=== PATIENT | male | born 1945 | race Caucasian/White ===

== ENCOUNTER → 2016-11-03 | Outpatient (CLI) | payer BC ==
[~2016-11-03] MED LIST: ASPCH81X PO; ATOR-24 PO; FLUO20CA34 PO; LEVO75TA5 PO; LPR50 PO; LSN25 PO; PLV75 PO
[2016-11-03 14:01] LABS: BASO % 0.4 %; BASO ABS # 0.02 K/uL (0-0.2); COMPLETE YES; EOS % 1.5 %; HEMATOCRIT 43.8 % (42-52); IG% 0.2 %; LYMPH % 26.8 %; LYMPH ABS # 1.43 K/uL (1.2-3.4); MEAN CELL VOLUME 92.6 fL (80-100); MEAN CORPUSCULAR HEMOGLOBIN 31.5 pg (25-34); MEAN PLATELET VOLUME 10.9 fL (7.4-10.4); MONO % 10.5 %; NEUT % 60.6 %; PLATELET COUNT 188 K/uL (130-400); RED BLOOD COUNT 4.73 M/uL (4.7-6.1); WHITE BLOOD COUNT 5.33 K/uL (4.8-10.8)
[2016-11-03 14:09] LABS: ESTIMATED AVERAGE GLUCOSE 126 mg/dl; HA1C FLAG Normal (Normal)
[2016-11-03 14:20] LABS: CALCIUM 8.6 mg/dl (8.5-10.1)
[2016-11-03 14:21] LABS: ALKALINE PHOSPHATASE 83 U/L (45-117); ALT/SGPT 42 U/L (12-78); AST/SGOT 29 U/L (15-37); BLOOD UREA NITROGEN 14 mg/dl (7-18); BUN/CREATININE RATIO 11.8 (10-20); CARBON DIOXIDE 27 mmol/L (21-32); CHLORIDE 108 mmol/L (98-107); CHOLESTEROL 141 mg/dl (0-200); CHOLESTEROL/HDL RATIO 4.4; GLUCOSE 90 mg/dl (70-99); HDL CHOLESTEROL 32 mg/dl; POTASSIUM 4.5 mmol/L (3.5-5.1); SODIUM 141 mmol/L (136-145); TRIGLYCERIDES 101 mg/dl (0-150); VERY LOW DENSITY LIPOPROT CALC 20 mg/dl
[2016-11-03 14:25] LABS: ALB/GLOB RATIO 0.9 (0.9-2)
== END | disposition home or self-care (01) ==
LOC: C.LABSPEC 12:30
PROVIDERS: ATTEND Internal Medicine
DX: R73.9 Hyperglycemia, unspecified (principal); I10 Essential (primary) hypertension; I25.10 Atherosclerotic heart disease of native coronary artery without angina pectoris; E78.5 Hyperlipidemia, unspecified; E03.9 Hypothyroidism, unspecified

== ENCOUNTER → 2016-11-05 | Outpatient (CLI) | payer BC | END | disposition home or self-care (01) | LOC: C.LABSPEC 09:56 | PROVIDERS: ATTEND Internal Medicine | DX: Z12.11 Encounter for screening for malignant neoplasm of colon (principal) ==

== ENCOUNTER → 2017-05-11 | Outpatient (CLI) | payer BC ==
[2017-05-11 15:22] LABS: ALT/SGPT 47 U/L (12-78); AST/SGOT 30 U/L (15-37); BLOOD UREA NITROGEN 13 mg/dl (7-18); BUN/CREATININE RATIO 11.4 (10-20); CALCIUM 8.9 mg/dl (8.5-10.1); CARBON DIOXIDE 28 mmol/L (21-32); CHLORIDE 106 mmol/L (98-107); CHOLESTEROL 152 mg/dl (0-200); CREATININE 1.11 mg/dl (0.60-1.40); GLUCOSE 89 mg/dl (70-99); POTASSIUM 4.2 mmol/L (3.5-5.1); SODIUM 140 mmol/L (136-145)
[2017-05-11 15:25] LABS: ALB/GLOB RATIO 0.8 (0.9-2); ALKALINE PHOSPHATASE 101 U/L (45-117); HDL CHOLESTEROL 38 mg/dl; TRIGLYCERIDES 100 mg/dl (0-150); VERY LOW DENSITY LIPOPROT CALC 20 mg/dl
[2017-05-12 07:43] LABS: ESTIMATED AVERAGE GLUCOSE 126 mg/dl; HA1C FLAG Normal (Normal)
== END | disposition home or self-care (01) ==
LOC: C.LABSPEC 14:49
PROVIDERS: ATTEND Internal Medicine
DX: I25.10 Atherosclerotic heart disease of native coronary artery without angina pectoris (principal); E78.5 Hyperlipidemia, unspecified; I10 Essential (primary) hypertension; E03.9 Hypothyroidism, unspecified; R73.9 Hyperglycemia, unspecified

== ENCOUNTER → 2017-05-29 | Outpatient (CLI) | payer BC ==
--- NOTE | 2017-05-29 10:51 | DIAGNOSTIC IMAGING REPORT ---
L-SPINE MIN 4 VIEWS ROUTINE HISTORY: 72 years-old Male LBP acute low back pain without reported trauma COMPARISON: None available TECHNIQUE: 5 views of the lumbar spine FINDINGS: No acute fracture or subluxation identified. Severe intervertebral disc space narrowing at L5-S1 with moderate multilevel disc space narrowing and endplate spurring. Severe multilevel facet arthrosis. No spondylolysis or spondylolisthesis identified. A 9 x 6 mm calcification projects of the left kidney suggesting renal calculus. The remaining soft tissues are unremarkable. IMPRESSION: 1. No acute fracture or subluxation. 2. Multilevel endplate spurring, intervertebral disc space narrowing and facet arthropathy as above. 3. 9 x 6 mm calcification of the left abdomen suggest nephrolithiasis. The above report was generated using voice recognition software. It may contain grammatical, syntax or spelling errors. Electronically signed by: Bora Stone M.D. 05/29/2017 10:50 AM Dictated Date/Time: 05/29/2017 10:49 AM
== END | disposition home or self-care (01) ==
LOC: C.RAD 10:21
PROVIDERS: ATTEND Internal Medicine
DX: M54.5 Low back pain (principal); M25.70 Osteophyte, unspecified joint; M51.36 Other intervertebral disc degeneration, lumbar region; R93.5 Abnormal findings on diagnostic imaging of other abdominal regions, including retroperitoneum

== ENCOUNTER → 2017-07-29 | Outpatient (CLI) | payer BC ==
[2017-07-29 15:37] LABS: BASO % 0.1 %; BASO ABS # 0.01 K/uL (0-0.2); EOS % 0.3 %; EOS ABS # 0.03 K/uL (0-0.5); HEMATOCRIT 39.3 % (42-52); HEMOGLOBIN 13.3 g/dL (14.0-18.0); IG# 0.03 K/uL (0.00-0.02); LYMPH % 15.1 %; LYMPH ABS # 1.49 K/uL (1.2-3.4); MEAN CELL VOLUME 91.2 fL (80-100); MEAN CORPUSCULAR HEMOGLOBIN 30.9 pg (25-34); MEAN CORPUSCULAR HGB CONC 33.8 g/dl (32-36); MEAN PLATELET VOLUME 10.5 fL (7.4-10.4); MONO % 8.2 %; MONO ABS # 0.81 K/uL (0.11-0.59); PLATELET COUNT 229 K/uL (130-400); RED CELL DISTRIBUTION WIDTH CV 13.3 % (11.5-14.5); RED CELL DISTRIBUTION WIDTH SD 44.4 fL (36.4-46.3); WHITE BLOOD COUNT 9.87 K/uL (4.8-10.8)
[2017-07-29 15:46] LABS: ALBUMIN 2.8 gm/dl (3.4-5.0); ALT/SGPT 39 U/L (12-78); AST/SGOT 32 U/L (15-37); BLOOD UREA NITROGEN 18 mg/dl (7-18); CALCIUM 8.7 mg/dl (8.5-10.1); CARBON DIOXIDE 27 mmol/L (21-32); CREATININE 1.19 mg/dl (0.60-1.40); GLUCOSE 136 mg/dl (70-99); SODIUM 139 mmol/L (136-145)
[2017-07-29 16:00] LABS: ALKALINE PHOSPHATASE 98 U/L (45-117); TOTAL PROTEIN 7.8 gm/dl (6.4-8.2)
== END ==
LOC: C.LABSPEC 14:54
PROVIDERS: ATTEND Internal Medicine
DX: R51 Headache (principal); I25.10 Atherosclerotic heart disease of native coronary artery without angina pectoris; I10 Essential (primary) hypertension; R53.83 Other fatigue; E03.9 Hypothyroidism, unspecified

== ENCOUNTER → 2017-07-31 | Outpatient (CLI) | payer BC | END | disposition home or self-care (01) | LOC: C.LABSPEC 12:57 | PROVIDERS: ATTEND Internal Medicine | DX: R77.1 Abnormality of globulin (principal) ==

== ENCOUNTER → 2017-08-06 | Outpatient (CLI) | payer BC | END | disposition home or self-care (01) | LOC: C.LABSPEC 12:34 | PROVIDERS: ATTEND Internal Medicine | DX: R77.1 Abnormality of globulin (principal) ==

== ENCOUNTER 2018-02-04 05:33 | Inpatient (IN) | payer BC, OTHER ==
[~2018-02-04] VITALS: Ht 170.2 cm; Wt 95.1 kg
[2018-02-04] MEDS ORDERED: MoRPHine SULFATE 10 MG/ML CARP/VIAL IV STA (05:49)
[2018-02-04] MEDS ORDERED: ONDANSETRON INJ 2 MG/ML 2 ML VIAL IV STA (05:49)
[2018-02-04] MEDS ORDERED: KETOROLAC TROMETHAMINE 15 MG/ML VIAL IV ONE (06:00)
[2018-02-04] MEDS ORDERED: SODIUM CHLORIDE 0.9% 1000ML 1,000 ML IV ONE (06:00)
[2018-02-04 06:02] LABS: BASO % 0.3 %; BASO ABS # 0.02 K/uL (0-0.2); EOS % 1.2 %; EOS ABS # 0.09 K/uL (0-0.5); HEMATOCRIT 44.2 % (42-52); HEMOGLOBIN 14.9 g/dL (14.0-18.0); IG# 0.02 K/uL (0.00-0.02); LYMPH % 20.8 %; LYMPH ABS # 1.59 K/uL (1.2-3.4); MEAN CELL VOLUME 92.5 fL (80-100); MEAN CORPUSCULAR HEMOGLOBIN 31.2 pg (25-34); MEAN CORPUSCULAR HGB CONC 33.7 g/dl (32-36); MEAN PLATELET VOLUME 10.3 fL (7.4-10.4); MONO % 6.4 %; MONO ABS # 0.49 K/uL (0.11-0.59); NEUT ABS # 5.43 K/uL (1.4-6.5); PLATELET COUNT 170 K/uL (130-400); RED CELL DISTRIBUTION WIDTH CV 13.8 % (11.5-14.5); RED CELL DISTRIBUTION WIDTH SD 46.4 fL (36.4-46.3); WHITE BLOOD COUNT 7.64 K/uL (4.8-10.8)
[2018-02-04 06:39] LABS: ALBUMIN 3.6 gm/dl (3.4-5.0); CALCIUM 8.6 mg/dl (8.5-10.1); CREATININE 1.41 mg/dl (0.60-1.40); POTASSIUM 3.6 mmol/L (3.5-5.1); TOTAL PROTEIN 7.9 gm/dl (6.4-8.2)
--- NOTE | 2018-02-04 06:49 | DIAGNOSTIC IMAGING REPORT ---
CT OF THE ABDOMEN AND PELVIS WITHOUT CONTRAST CLINICAL HISTORY: Left flank pain. History of stones. COMPARISON STUDY: No previous studies for comparison. TECHNIQUE: Axial images of the abdomen and pelvis were obtained without IV contrast. Images were reviewed in the axial, sagittal, and coronal planes. A dose lowering technique was utilized adhering to the principles of ALARA. FINDINGS: 1.2 x 0.5 cm left ureteropelvic junction calculus results in moderate left hydronephrosis. A few left renal calculi measure up to 4 mm. There are no right ureteral calculi. Evaluation of the remainder of the abdomen and pelvis is suboptimal on this unenhanced examination. A few water attenuation hepatic lesions measure up to 1 cm. These favor cysts. The spleen, adrenal glands and pancreas are unremarkable. There is no evidence for a bowel obstruction. Bladder is mildly distended. Prostate is moderately enlarged. There is no lymphadenopathy or ascites. There are no suspicious osseous lesions. No biliary or pancreatic ductal dilatation is present. IMPRESSION: 1. 1.2 x 0.5 cm left ureteropelvic junction calculus which results in moderate left hydronephrosis. 2. Several small left renal calculi. Electronically signed by: Phoenix Rose M.D. 02/04/2018 6:48 AM Dictated Date/Time: 02/04/2018 6:43 AM
[2018-02-04] MEDS ORDERED: ACETAMINOPHEN IV 650 MG in EMPTY BAG 0 ML IV PRN (07:15)
[2018-02-04] MEDS ORDERED: LORAZEPAM 2 MG/ML 1 ML VIAL IV PRN ×2 (07:15)
[2018-02-04] MEDS ORDERED: KETOROLAC TROMETHAMINE 15 MG/ML VIAL IV PRN (07:15)
[2018-02-04] MEDS ORDERED: ACETAMINOPHEN 325 MG TAB PO PRN (07:15)
[2018-02-04] MEDS ORDERED: POLYETHYLENE (MIRALAX) 17 GM PACK PO PRN (07:15)
[2018-02-04] MEDS ORDERED: MoRPHine SULFATE 4 MG/ML 1 ML CARP\\VIAL IV PRN (07:15)
[2018-02-04] MEDS ORDERED: ONDANSETRON INJ 2 MG/ML 2 ML VIAL IV PRN (07:15)
[2018-02-04] MEDS ORDERED: CLONIDINE HCL 0.1 MG TAB PO PRN (07:15)
[2018-02-04] MEDS ORDERED: MAGNESIUM HYDROXIDE SUSP 30 ML UDC PO PRN (07:15)
[2018-02-04] MEDS ORDERED: ATOR-26 PO (07:19)
[2018-02-04] MEDS ORDERED: LISI-1116 PO (07:22)
[2018-02-04] MEDS ORDERED: LISI5TAB PO (07:22)
[2018-02-04] MEDS ORDERED: TPRSR/50 PO (07:24)
[2018-02-04 07:32] VITALS: O2SAT 97; Ht 170.2 cm; Wt 95.1 kg
--- NOTE | 2018-02-04 08:01 | History and Physical ---
History & Physical Date & Time of Service: Feb 04, 2018 at 07:56 Chief Complaint: left flank pain,KIDNEY STONE Primary Care Physician: Humphrey Khanna M.D. History of Present Illness 73-year-old male presents with acute sided left-sided flank pain and nausea. The patient is relatively healthy in general he does a cardiac history of those had no recent angina orthopnea or concerns for recurrence of his cardiac disease. He does have some mild dyspnea on exertion has been worked up by Dr. Eubanks pulmonary function tests. In the emergency room a CT scan revealed a 1.2 x 0.5 cm left UPJ stone with mild hydronephrosis patient also has mild acute kidney injury with elevation of his creatinine over his baseline. Patient will be admitted for urology consultation and possible cystoscopic manipulation of the stone plus parenteral pain medications and hydration Past Medical/Surgical History Medical Problems: (1) Acute inferior myocardial infarction (2) Hyperlipidemia (3) Nephrolithiasis (4) STEMI (ST elevation myocardial infarction) (5) Thyroid disorder Family History FH: heart disease Social History Smoking Status: Never Smoker Alcohol Use: none Marital Status: Occupational Status: employed Immunizations History of Influenza Vaccine: No History of Tetanus Vaccine?: Unknown History of Pneumococcal: No History of Hepatitis B Vaccine: No Allergies Coded Allergies: No Known Allergies (Unverified , 08/14/13) Home Medications Scheduled Aspirin (Aspirin Chewable), 81 MG PO DAILY Atorvastatin (Lipitor), 80 MG PO DAILY Fluoxetine Hcl (Prozac), 20 MG PO DAILY Levothyroxine Sodium (Levothyroxine Sodium), 75 MCG PO DAILY Lisinopril (Lisinopril), 2.5 MG PO DAILY Metoprolol Succinate (Metoprolol Succinate ER), 50 MG PO DAILY Metoprolol Tartrate (Metoprolol Tartrate), 50 MG PO BID Review of Systems ROS: well nourished well developed. No double vision blurry vision No problems with speech or swallowing No palpitations, chest pain or pressure No Wheezing or breathing issues, as per HPI mild dyspnea on exertion Left-sided crampy abdominal pain plus mild nausea, no diarrhea or changes in appetite or weight No burning urine urine frequency or changes in color No focal joint pain or muscle pain No skin rashes or oral lesions No unusual bruising or bleeding Left cva back pain or numbness or loss of strength No changes in memory or confusion Physical Exam Vital Signs Date Time Temp Pulse Resp B/P (MAP) Pulse Ox O2 Delivery O2 Flow Rate FiO2 02/04/18 07:32 97 Nasal Cannula 2.0 02/04/18 06:39 72 16 141/80 97 Nasal Cannula 2.0 02/04/18 06:24 92 Nasal Cannula 2.0 02/04/18 06:24 93 Nasal Cannula 2.0 02/04/18 06:22 69 20 136/83 88 Room Air 02/04/18 05:37 50 18 182/96 97 Room Air General Appearance: WD/WN, + mild distress Head: normocephalic, atraumatic Eyes: normal inspection, sclerae normal Neck: supple, no JVD Respiratory/Chest: chest non-tender, lungs clear, normal breath sounds Cardiovascular: regular rate, rhythm, normal peripheral pulses Abdomen/GI: normal bowel sounds, soft, + tenderness Back: no muscle spasm, + left CVA tenderness Extremities/Musculoskelatal: no pedal edema, normal range of motion Neurologic/Psych: alert, oriented x 3 Skin: normal color, warm/dry, no rash Diagnostics Laboratory Results Results Past 24 Hours Test 02/04/18 05:45 02/04/18 05:56 Range/Units White Blood Count 7.64 4.8-10.8 K/uL Red Blood Count 4.78 4.7-6.1 M/uL Hemoglobin 14.9 14.0-18.0 g/dL Hematocrit 44.2 42-52 % Mean Corpuscular Volume 92.5 80-100 fL Mean Corpuscular Hemoglobin 31.2 25-34 pg Mean Corpuscular Hemoglobin Concent 33.7 32-36 g/dl Platelet Count 170 130-400 K/uL Mean Platelet Volume 10.3 7.4-10.4 fL Neutrophils (%) (Auto) 71.0 % Lymphocytes (%) (Auto) 20.8 % Monocytes (%) (Auto) 6.4 % Eosinophils (%) (Auto) 1.2 % Basophils (%) (Auto) 0.3 % Neutrophils # (Auto) 5.43 1.4-6.5 K/uL Lymphocytes # (Auto) 1.59 1.2-3.4 K/uL Monocytes # (Auto) 0.49 0.11-0.59 K/uL Eosinophils # (Auto) 0.09 0-0.5 K/uL Basophils # (Auto) 0.02 0-0.2 K/uL RDW Standard Deviation 46.4 36.4-46.3 fL RDW Coefficient of Variation 13.8 11.5-14.5 % Immature Granulocyte % (Auto) 0.3 % Immature Granulocyte # (Auto) 0.02 0.00-0.02 K/uL Sodium Level 141 136-145 mmol/L Potassium Level 3.6 3.5-5.1 mmol/L Chloride Level 106 98-107 mmol/L Carbon Dioxide Level 26 21-32 mmol/L Anion Gap 9.0 3-11 mmol/L Blood Urea Nitrogen 25 7-18 mg/dl Creatinine 1.41 0.60-1.40 mg/dl Est Creatinine Clear Calc Drug Dose 52.8 ml/min Estimated GFR () 57.7 Estimated GFR (Non- 49.8 BUN/Creatinine Ratio 17.4 10-20 Random Glucose 197 70-99 mg/dl Calcium Level 8.6 8.5-10.1 mg/dl Total Bilirubin 0.5 0.2-1 mg/dl Aspartate Amino Transf (AST/SGOT) 29 15-37 U/L Alanine Aminotransferase (ALT/SGPT) 38 12-78 U/L Alkaline Phosphatase 111 45-117 U/L Total Protein 7.9 6.4-8.2 gm/dl Albumin 3.6 3.4-5.0 gm/dl Globulin 4.3 2.5-4.0 gm/dl Albumin/Globulin Ratio 0.8 0.9-2 Lipase 495 73-393 U/L Bedside Troponin I < 0.030 0-0.045 ng/ml Diagnostic Radiology Ct Abdomen/Pelvis non contrast 1. 1.2 x 0.5 cm left ureteropelvic junction calculus which results in moderate left hydronephrosis. 2. Several small left renal calculi. Impression Assessment and Plan 73-year-old male here with left renal colic hydronephrosis and acute kidney injury Patient will be admitted to our facility urology consultation intravenous fluids parenteral opiates and nonsteroidals Flomax will be started For his history of coronary disease his aspirin will be held will maintain his metoprolol 50 twice daily holding lisinopril 2.5 maintaining atorvastatin For his depression Prozac will be maintained at 20 Hypothyroidism is treated clinically stable Synthroid 75 mcg a day DVT prevention is SCDs at this time given the possibility of a procedure Advanced Directives Existing Living Will: Yes Existing Power of Grooving Lathe Tender: Yes Resuscitation Status VTE Prophylaxis Will order VTE Prophylaxis: Yes
[2018-02-04 08:04] VITALS: BP 135/75; PULSE 57; TEMP 36.5; O2SAT 93
[2018-02-04] MEDS ORDERED: LORAZEPAM INJ 1 MG in SYRINGE 0.5 ML IV PRN (08:45)
[2018-02-04] MEDS ORDERED: LORAZEPAM INJ 0.5 MG in SYRINGE 0.75 ML IV PRN (08:45)
[2018-02-04] MEDS: SODIUM CHLORIDE 0.9% 1000ML 1,000 ML IV SCH ×3 (08:54→22:29)
[2018-02-04] MEDS: METOPROLOL TARTRATE 50 MG TAB PO SCH ×2 (09:00→21:03)
[2018-02-04] MEDS: TAMSULOSIN HCL 0.4 MG CAP PO SCH (09:18)
[2018-02-04] MEDS: FLUOXETINE HCL 20 MG CAP PO SCH (09:21)
--- NOTE | 2018-02-04 10:46 | Urology Consultation ---
History General Date of Service: Feb 04, 2018. Chief Complaint: Left ureteral stone Primary Care Physician: Humphrey Khanna M.D. Pt seen a urologist before?: No History of Present Illness 73 YO male, left ureteral stone, mild hydronephrosis, mild ERMIAS. Patient has never seen a urologist before, and he believes this is his first kidney stone. CT images reviewed: 12mm stone at left UPJ, mild hydronephrosis. Mild ERMIAS with Cr 1.41. Patient reports episode of sharp flank pain overnight with accompanying nausea, bringing him to the ER. He denies difficulty or pain with urination, denies hematuria. Denies fever/chills. Denies pain at this time. Imaging Imaging: CT Images were done at: [facility] Laboratory Labs were reviewed and are within normal limits unless listed below. Labs are available in the chart and at [facility] Past History other (cardiac stent) Pt had a problem w anesthesia?: No Past Surgical History: appendectomy, other (cardiac stent) Family History FH: heart disease Social History Hx Tobacco Use In Past Year?: No Alcohol: socially, occasional Drug use: none Marital status: Housing status: lives with family Occupation status: employed Immunizations History of Influenza Vaccine: No History of Tetanus Vaccine?: Unknown History of Pneumococcal: No History of Hepatitis B Vaccine: No History of MDRO No Allergies Coded Allergies: No Known Allergies (Unverified , 08/14/13) Medications Home Medications: Home Meds and Scripts Medications Dose Route/Sig Max Daily Dose Days Date Category Metoprolol Succinate ER (Metoprolol Succinate) 50 Mg Tabcr 50 Mg PO DAILY 02/04/18 Reported Lisinopril 2.5 Mg Tab 2.5 Mg PO DAILY 02/04/18 Reported Lipitor (Atorvastatin Calcium) 80 Mg Tab 80 Mg PO DAILY 02/04/18 Reported Aspirin Chewable (Aspirin) 81 Mg Chew 81 Mg PO DAILY 09/12/13 Reported Metoprolol Tartrate 50 Mg Tab 50 Mg PO BID 08/17/13 Rx Prozac (Fluoxetine Hcl) 20 Mg Cap 20 Mg PO DAILY 08/14/13 Reported Levothyroxine Sodium 75 Mcg Tab 75 Mcg PO DAILY 08/14/13 Reported Inpatient Medications: Current Inpatient Medications Medications (Trade) Dose Ordered Sig/Jorge Route Start Time Stop Time Status Last Admin Dose Admin Fluoxetine HCl (Prozac Cap) 20 mg DAILY PO 02/04/18 09:00 03/06/18 08:59 02/04/18 09:21 20 MG Levothyroxine Sodium (Synthroid Tab) 75 mcg DAILYBB PO 02/04/18 11:00 03/06/18 10:59 Metoprolol Tartrate (Lopressor Tab) 50 mg BID PO 02/04/18 09:00 03/06/18 08:59 Acetaminophen (Tylenol Tab) 650 mg Q4H PRN PO 02/04/18 07:15 03/06/18 07:14 Magnesium Hydroxide (Milk Of Magnesia Susp) 30 ml Q6H PRN PO 02/04/18 07:15 03/06/18 07:14 Polyethylene (Miralax Powder Packet) 17 gm DAILY PRN PO 02/04/18 07:15 03/06/18 07:14 Ondansetron HCl (Zofran Inj) 4 mg Q6H PRN IV 02/04/18 07:15 03/06/18 07:14 Sodium Chloride 1,000 ml @ 150 mls/hr Q6H40M IV 02/04/18 08:30 03/06/18 08:29 02/04/18 08:54 150 MLS/HR Morphine Sulfate (MoRPHine SULFATE INJ) 2 mg Q4H PRN IV 02/04/18 07:15 02/18/18 07:14 Morphine Sulfate (MoRPHine SULFATE INJ) 4 mg Q4H PRN IV 02/04/18 07:15 02/18/18 07:14 Ketorolac Tromethamine (Toradol Inj) 15 mg Q6H PRN IV 02/04/18 07:15 02/09/18 07:14 Acetaminophen 650 mg/Empty Bag 65 ml @ 260 mls/hr Q6H PRN IV 02/04/18 07:15 03/06/18 07:14 Clonidine HCl (Catapres Tab) 0.1 mg Q12H PRN PO 02/04/18 07:15 03/06/18 07:14 Tamsulosin HCl (Flomax Cap) 0.4 mg QAM PO 02/04/18 09:00 03/06/18 08:59 02/04/18 09:18 0.4 MG Lorazepam 0.5 mg/ Syringe 1 ml @ 1 mls/min Q4H PRN IV 02/04/18 08:45 9/22/18 08:44 Lorazepam 1 mg/ Syringe 1 ml @ 1 mls/min Q4H PRN IV 02/04/18 08:45 03/06/18 08:44 Review of Systems Review of Systems Constitutional: No fever, No chills Eyes: No blurred vision Neurological: No numbness/tingling Gastrointestinal: + nausea, No abdominal pain, No vomiting Cardiovascular: No chest pain Respiratory: No shortness of breath Skin: No problem reported Musculoskeletal: + back pain (mild, left flank) Ears / Nose / Throat: No problem reported Psychologic / Mental: No problem reported Male : + see HPI Physical Exam Vital Signs: Vital Signs Past 12 Hours Date Time Temp Pulse Resp B/P (MAP) Pulse Ox O2 Delivery O2 Flow Rate FiO2 02/04/18 08:10 Nasal Cannula 2.0 02/04/18 08:04 36.5 57 18 135/75 (95) 93 2.0 02/04/18 07:32 97 Nasal Cannula 2.0 02/04/18 06:39 72 16 141/80 97 Nasal Cannula 2.0 02/04/18 06:24 92 Nasal Cannula 2.0 02/04/18 06:24 93 Nasal Cannula 2.0 02/04/18 06:22 69 20 136/83 88 Room Air 02/04/18 05:37 50 18 182/96 97 Room Air Physical Exam: General Appearance: no apparent distress Eyes: bilateral eyes normal inspection ENT: hearing grossly normal Neck: supple, no JVD Respiratory/Chest: no respiratory distress, no accessory muscle use Cardiovascular: no JVD Gastrointestinal: Abdomen: normal abdomen Bladder: normal bladder Renal: normal renal, cva tenderness (mild left) Extremities: normal inspection Neurologic/Psychiatric: alert, normal mood/affect, oriented x 3 Skin: normal color Assessment & Plan Assessment & Plan Imaging: KUB 73 YO male, left ureteral stone, mild hydronephrosis, mild ERMIAS. Patient's pain is under control, he remains afebrile. Denies nausea, no difficulties voiding. Cr slightly elevated, will continue to monitor. Recommend supportive therapy: continued pain control, Zofran PRN nausea, Flomax , IVF. Push PO intake, strain all urine. Will check KUB today for visualization, likely candidate for ESWL/outpatient stone management. Will provide diet today, will make NPO at midnight in the event that acute surgical intervention is required tomorrow. Thanks for the consult, will continue to follow along with primary service.
[2018-02-04] MEDS: LEVOTHYROXINE 75 MCG TAB PO SCH (10:49)
--- NOTE | 2018-02-04 11:28 | DIAGNOSTIC IMAGING REPORT ---
KUB CLINICAL HISTORY: Nephrolithiasis. COMPARISON STUDY: CT of the abdomen and pelvis February 04, 2018 at 6:16 AM. FINDINGS: A 1.1 x 0.5 cm left ureteropelvic junction calculus is unchanged in position since CT performed earlier today. A few small left renal calculi are noted. Pelvic calcifications reflect phleboliths. The bowel gas pattern is normal. IMPRESSION: 1. No change in position of a 1.1 x 0.5 cm left ureteropelvic junction calculus. 2. A few small left renal calculi. Electronically signed by: Phoenix Rose M.D. 02/04/2018 11:27 AM Dictated Date/Time: 02/04/2018 11:25 AM
[2018-02-04] MEDS: MoRPHine SULFATE 2 MG/ML CARP IV PRN (13:55)
[2018-02-04 15:10] VITALS: BP 139/68; PULSE 54; TEMP 36.3; O2SAT 93
[2018-02-04 21:01] VITALS: BP 122/74; PULSE 65
[2018-02-04 23:00] VITALS: BP 112/70; PULSE 55; TEMP 36.5; O2SAT 93
[2018-02-05] VITALS (9 sets, daily range): BP systolic 130–163; BP diastolic 76–90; PULSE 61–69; TEMP 36.6–37.1; O2SAT 93–96
[2018-02-05] MEDS: MoRPHine SULFATE 2 MG/ML CARP IV PRN (00:21)
[2018-02-05] MEDS: SODIUM CHLORIDE 0.9% 1000ML 1,000 ML IV SCH ×3 (04:53→21:09)
--- NOTE | 2018-02-05 05:29 | EMERGENCY ROOM VISIT NOTE ---
History First contact with patient: 05:42 Chief Complaint: KIDNEY STONE Stated Complaint: NEPHROLITHIASIS History of Present Illness The patient is a 73 year old male who presents to the Emergency Room with complaints of acute onset left flank pain that began about 2 hours ago. The patient states the pain radiates from his back down into his groin. The pain is intermittent in nature and at its worst is a 10/10. He is nauseated without vomiting. The patient does have a past history of cardiac disease, however this does not feel heart related. He has not taken anything [id number] for his pain. He is without fever or chills. No difficulty using the bathroom. His discomfort is currently rated a 5/10. He does not identify aggravating or alleviating factors. Review of Systems More than 10 systems were reviewed and otherwise negative with the exception of history of present illness. Past Medical/Surgical History Medical Problems: (1) Hyperlipidemia (2) Nephrolithiasis (3) Thyroid disorder Family History FH: heart disease Social History Smoking Status: Never Smoker Marital Status: Housing Status: lives with significant other Occupation Status: employed Current/Historical Medications Scheduled Aspirin (Aspirin Chewable), 81 MG PO DAILY Atorvastatin (Lipitor), 80 MG PO DAILY Fluoxetine Hcl (Prozac), 20 MG PO DAILY Levothyroxine Sodium (Levothyroxine Sodium), 75 MCG PO DAILY Lisinopril (Lisinopril), 2.5 MG PO DAILY Metoprolol Succinate (Metoprolol Succinate ER), 50 MG PO DAILY Metoprolol Tartrate (Metoprolol Tartrate), 50 MG PO BID Physical Exam Vital Signs Date Time Temp Pulse Resp B/P (MAP) Pulse Ox O2 Delivery O2 Flow Rate FiO2 02/04/18 08:04 36.5 57 18 135/75 (95) 93 2.0 02/04/18 07:32 97 Nasal Cannula 2.0 02/04/18 06:39 72 16 141/80 97 Nasal Cannula 2.0 02/04/18 06:24 92 Nasal Cannula 2.0 02/04/18 06:24 93 Nasal Cannula 2.0 02/04/18 06:22 69 20 136/83 88 Room Air 02/04/18 05:37 50 18 182/96 97 Room Air Physical Exam VITALS: Vitals are noted on the nurse's note and reviewed by myself. Vital signs stable. GENERAL: Well-developed, well-nourished, white male who appears in moderate to severe discomfort. He is cooperative with the examination. He is laying flat in his ER bed. HEART: Regular rate and rhythm LUNGS: Clear to auscultation bilaterally without wheezes, rales or rhonchi. No retractions or accessory muscle use. ABDOMEN: Positive normal bowel sounds x 4. Soft, nontender, without masses or organomegaly. No guarding or rebound tenderness. No CVA tenderness MUSCULOSKELETAL: No muscle atrophy, erythema, or edema noted. Full range of motion in all extremities. Medical Decision & Procedures ER Provider Diagnostic Interpretation: CT OF THE ABDOMEN AND PELVIS WITHOUT CONTRAST CLINICAL HISTORY: Left flank pain. History of stones. COMPARISON STUDY: No previous studies for comparison. TECHNIQUE: Axial images of the abdomen and pelvis were obtained without IV contrast. Images were reviewed in the axial, sagittal, and coronal planes. A dose lowering technique was utilized adhering to the principles of ALARA. FINDINGS: 1.2 x 0.5 cm left ureteropelvic junction calculus results in moderate left hydronephrosis. A few left renal calculi measure up to 4 mm. There are no right ureteral calculi. Evaluation of the remainder of the abdomen and pelvis is suboptimal on this unenhanced examination. A few water attenuation hepatic lesions measure up to 1 cm. These favor cysts. The spleen, adrenal glands and pancreas are unremarkable. There is no evidence for a bowel obstruction. Bladder is mildly distended. Prostate is moderately enlarged. There is no lymphadenopathy or ascites. There are no suspicious osseous lesions. No biliary or pancreatic ductal dilatation is present. IMPRESSION: 1. 1.2 x 0.5 cm left ureteropelvic junction calculus which results in moderate left hydronephrosis. 2. Several small left renal calculi. Laboratory Results Test 02/04/18 00:00 02/04/18 05:45 02/04/18 05:56 Urine Color YELLOW Urine Appearance CLOUDY (CLEAR) Urine pH 5.0 (4.5-7.5) Urine Specific [place] 1.024 (1.000-1.030) Urine Protein NEG (NEG) Urine Glucose (UA) NEG (NEG) Urine Ketones NEG (NEG) Urine Occult Blood 3+ (NEG) Urine Nitrite NEG (NEG) Urine Bilirubin NEG (NEG) Urine Urobilinogen NEG (NEG) Urine Leukocyte Esterase SMALL (NEG) Urine WBC (Auto) 5-10 /hpf (0-5) Urine RBC (Auto) >30 /hpf (0-4) Urine Hyaline Casts (Auto) 1-5 /lpf (0-5) Urine Epithelial Cells (Auto) >30 /lpf (0-5) Urine Bacteria (Auto) 1+ (NEG) Urine Pathogenic Casts /lpf (0) Urine Mucus PRESENT (NONE PRSENT) RDW Standard Deviation 46.4 fL (36.4-46.3) RDW Coefficient of Variation 13.8 % (11.5-14.5) White Blood Count 7.64 K/uL (4.8-10.8) Red Blood Count 4.78 M/uL (4.7-6.1) Hemoglobin 14.9 g/dL (14.0-18.0) Hematocrit 44.2 % (42-52) Mean Corpuscular Volume 92.5 fL (80-100) Mean Corpuscular Hemoglobin 31.2 pg (25-34) Mean Corpuscular Hemoglobin Concent 33.7 g/dl (32-36) Platelet Count 170 K/uL (130-400) Mean Platelet Volume 10.3 fL (7.4-10.4) Neutrophils (%) (Auto) 71.0 % Lymphocytes (%) (Auto) 20.8 % Monocytes (%) (Auto) 6.4 % Eosinophils (%) (Auto) 1.2 % Basophils (%) (Auto) 0.3 % Neutrophils # (Auto) 5.43 K/uL (1.4-6.5) Lymphocytes # (Auto) 1.59 K/uL (1.2-3.4) Monocytes # (Auto) 0.49 K/uL (0.11-0.59) Eosinophils # (Auto) 0.09 K/uL (0-0.5) Basophils # (Auto) 0.02 K/uL (0-0.2) Immature Granulocyte % (Auto) 0.3 % Immature Granulocyte # (Auto) 0.02 K/uL (0.00-0.02) Est Creatinine Clear Calc Drug Dose 52.8 ml/min Total Bilirubin 0.5 mg/dl (0.2-1) Aspartate Amino Transf (AST/SGOT) 29 U/L (15-37) Alanine Aminotransferase (ALT/SGPT) 38 U/L (12-78) Alkaline Phosphatase 111 U/L (45-117) Total Protein 7.9 gm/dl (6.4-8.2) Albumin 3.6 gm/dl (3.4-5.0) Globulin 4.3 gm/dl (2.5-4.0) Albumin/Globulin Ratio 0.8 (0.9-2) Lipase 495 U/L (73-393) Bedside Troponin I < 0.030 ng/ml (0-0.045) Medications Administered Medications (Trade) Dose Ordered Sig/Jorge Route Start Time Stop Time Status Last Admin Dose Admin Sodium Chloride 1,000 ml @ 999 mls/hr Q1H1M ONCE IV 02/04/18 06:00 02/04/18 07:00 DC 02/04/18 05:58 999 MLS/HR Ondansetron HCl (Zofran Inj) 4 mg NOW STAT IV 02/04/18 05:49 02/04/18 05:50 DC 02/04/18 05:56 4 MG Morphine Sulfate (MoRPHine SULFATE INJ) 8 mg NOW STAT IV 02/04/18 05:49 02/04/18 05:51 DC 02/04/18 05:56 8 MG Ketorolac Tromethamine (Toradol Inj) 15 mg NOW ONCE IV 02/04/18 06:00 02/04/18 06:01 DC 02/04/18 05:56 15 MG Morphine Sulfate (MoRPHine SULFATE INJ) 2 mg Q4H PRN IV 02/04/18 07:15 02/18/18 07:14 02/05/18 00:21 2 MG ED Course Physical exam and history were performed. Nursing notes, EMR, and Medication List were personally reviewed. Patient appears to have left flank pain acutely bring him to the emergency department. The patient appears uncomfortable on presentation. IV access was established and labs were obtained. He was hydrated and medicated as above. CT scan was performed. The patient's blood work is as above and was reviewed. He does not have a significantly elevated white blood cell count, gross anemia, bandemia, or significant electrolyte imbalance. Urine is without obvious signs of infection. He does have a mild increase in his creatinine from baseline suggesting some acute kidney injury. The patient's CT scan shows a remarkably large 12 mm stone at the UPJ. This is likely the cause of the patient's discomfort. I discussed options of care with the patient, who is concerned about going home. The patient will likely need some sort of urologic intervention. I discussed the case with the on-call hospitalist who agreed to evaluate the patient for further care management. Please see their dictation for further patient course, plan, and disposition. The chart was completed utilizing [employer] Speech Voice Recognition Software. Grammatical errors, random word insertions, pronoun errors, and incomplete sentences are an occasional consequence of this system due to software limitations, ambient noise, and hardware issues. Any formal questions or concerns about the content, text, or information contained within the body of this dictation should be directly addressed to the provider for clarification. . Medical Decision Differential diagnosis: Etiologies such as renal colic, appendicitis, diverticulitis, mesenteric ischemia, aortic pathology, infections, inflammatory bowel disease, PUD, biliary pathology, UTI, as well as others were entertained. Impression Primary Impression: Ureteral calculus Departure Information Dispostion Admitted as an inpatient Referrals Humphrey Khanna M.D. (PCP) Forms HOME CARE DOCUMENTATION FORM, IMPORTANT VISIT INFORMATION Patient Instructions My [facility]
[2018-02-05] MEDS: LEVOTHYROXINE 75 MCG TAB PO SCH (06:01)
[2018-02-05 07:25] LABS: HEMATOCRIT 38.8 % (42-52); HEMOGLOBIN 13.3 g/dL (14.0-18.0); MEAN CELL VOLUME 91.5 fL (80-100); MEAN CORPUSCULAR HEMOGLOBIN 31.4 pg (25-34); MEAN CORPUSCULAR HGB CONC 34.3 g/dl (32-36); MEAN PLATELET VOLUME 10.4 fL (7.4-10.4); PLATELET COUNT 126 K/uL (130-400); RED CELL DISTRIBUTION WIDTH CV 13.9 % (11.5-14.5); RED CELL DISTRIBUTION WIDTH SD 45.8 fL (36.4-46.3); WHITE BLOOD COUNT 8.72 K/uL (4.8-10.8)
[2018-02-05 07:51] LABS: CALCIUM 7.6 mg/dl (8.5-10.1); CREATININE 1.91 mg/dl (0.60-1.40); POTASSIUM 5.2 mmol/L (3.5-5.1)
[2018-02-05] MEDS ORDERED: SODIUM POLYST. SULF SUSP 15G/60ML PO STA (08:11)
--- NOTE | 2018-02-05 08:17 | Progress Note ---
Subjective Date of Service: Feb 05, 2018. Subjective pt has no pain but has worsening Cr and elevated K given some kayexalate Problem List Medical Problems: (1) Ureteral calculus Status: Acute Review of Systems Constitutional: No fever, No chills, No weakness, No fatigue Respiratory: No cough, No shortness of breath Cardiac: No chest pain, No edema Abdomen: No pain, No nausea, No vomiting Musculoskeletal: No joint pain, No muscle pain Neurologic: No memory loss, No weakness Psychiatric: No depression symptoms, No anxiety Objective Vital Signs Date Time Temp Pulse Resp B/P (MAP) Pulse Ox O2 Delivery O2 Flow Rate FiO2 02/05/18 07:55 36.6 63 16 130/80 (97) 93 Room Air 02/04/18 23:50 Room Air 02/04/18 23:00 36.5 55 18 112/70 (84) 93 Room Air 02/04/18 21:01 65 122/74 (90) 02/04/18 15:45 Room Air 02/04/18 15:10 36.3 54 18 139/68 (91) 93 Physical Exam General Appearance: WD/WN, + mild distress Eyes: normal inspection, sclerae normal Neck: supple, no JVD Respiratory/Chest: chest non-tender, lungs clear Cardiovascular: regular rate, rhythm, no murmur Abdomen: normal bowel sounds, non tender, soft Neurologic/Psychiatric: alert, oriented x 3 Laboratory Results Last 24 Hours Test 02/05/18 06:54 White Blood Count 8.72 K/uL Red Blood Count 4.24 M/uL Hemoglobin 13.3 g/dL Hematocrit 38.8 % Mean Corpuscular Volume 91.5 fL Mean Corpuscular Hemoglobin 31.4 pg Mean Corpuscular Hemoglobin Concent 34.3 g/dl RDW Standard Deviation 45.8 fL RDW Coefficient of Variation 13.9 % Platelet Count 126 K/uL Mean Platelet Volume 10.4 fL Sodium Level 137 mmol/L Potassium Level 5.2 mmol/L Chloride Level 107 mmol/L Carbon Dioxide Level 23 mmol/L Anion Gap 7.0 mmol/L Blood Urea Nitrogen 26 mg/dl Creatinine 1.91 mg/dl Est Creatinine Clear Calc Drug Dose 39.0 ml/min Estimated GFR () 40.0 Estimated GFR (Non- 34.5 BUN/Creatinine Ratio 13.4 Random Glucose 109 mg/dl Calcium Level 7.6 mg/dl Assessment and Plan 73-year-old male here with left renal colic hydronephrosis and acute kidney injury urology consultation has pursued cysto, await results Acute Kidney injury, concern if secondary to hydronephrosis, kayexalate coronary disease his aspirin is held. continue metoprolol 50 twice daily continue holding lisinopril 2.5 maintaining atorvastatin For his depression Prozac will be maintained at 20 Hypothyroidism is treated clinically stable Synthroid 75 mcg a day DVT prevention is SCDs at this time given the possibility of a procedure
[2018-02-05] MEDS: TAMSULOSIN HCL 0.4 MG CAP PO SCH (09:17)
[2018-02-05] MEDS: FLUOXETINE HCL 20 MG CAP PO SCH (09:18)
[2018-02-05] MEDS: METOPROLOL TARTRATE 50 MG TAB PO SCH ×2 (09:18→21:09)
[2018-02-05] MEDS ORDERED: PROPOFOL IV EMULSION 10 MG/ML 20 ML VIAL ONE ×2 (12:56→14:39)
[2018-02-05] MEDS ORDERED: MIDAZOLAM HCL 1 MG/ML 2ML VIAL ONE (12:56)
[2018-02-05] MEDS ORDERED: LIDOCAINE HCL 2% 2 ML VIAL (20MG/ML) ONE (12:56)
[2018-02-05] MEDS ORDERED: FENTANYL CITRATE INJ 50 MCG/1 ML 2 ML VIAL ONE (12:56)
[2018-02-05] MEDS ORDERED: ONDANSETRON INJ 2 MG/ML 2 ML VIAL ONE (12:56)
[2018-02-05] MEDS ORDERED: Cysto-Conray II 17.2% 250ML BOTTLE ONE (13:14)
--- NOTE | 2018-02-05 13:45 | History & Physical Bridge Note ---
H&P Re-Evaluation Bridge Note: I have examined the patient, reviewed the History & Physical and in the interval since the performance of the History & Physical I have noted the following changes of clinical significance: No changes noted
--- NOTE | 2018-02-05 14:05 | History & Physical Bridge Note ---
H&P Re-Evaluation Bridge Note: I have examined the patient, reviewed the History & Physical and in the interval since the performance of the History & Physical I have noted the following changes of clinical significance: No changes noted for cysto and left stent insertion
[2018-02-05] MEDS ORDERED: KETAMINE HCL INJ 50 MG/ML 10 ML VIAL ONE (14:17)
[2018-02-05] MEDS ORDERED: CEFAZOLIN SOD 1 GM VIAL ONE (14:28)
[2018-02-05] MEDS ORDERED: ATROPINE SULFATE 0.1 MG/ML 5ML SYR IV PRN (14:45)
[2018-02-05] MEDS ORDERED: FENTANYL CITRATE INJ 50 MCG/1 ML 2 ML VIAL IV PRN (14:45)
[2018-02-05] MEDS ORDERED: NALOXONE HCL 0.4 MG/1 ML VIAL/CARP IV PRN (14:45)
[2018-02-05] MEDS ORDERED: EpHEDrine SULFATE INJ 50 MG/ML AMP IV PRN (14:45)
[2018-02-05] MEDS ORDERED: FLUMAZENIL 0.1 MG/1 ML 10 ML VIAL IV PRN (14:45)
[2018-02-05] MEDS ORDERED: PROMETHAZINE HCL INJ 12.5 MG in SODIUM CHLORIDE 0.9% 50ML 50 ML IV PRN (14:45)
[2018-02-05] MEDS ORDERED: ONDANSETRON INJ 2 MG/ML 2 ML VIAL IV PRN (14:45)
[2018-02-05] MEDS ORDERED: LABETALOL HCL IV 5 MG/ML 20ML IV PRN (14:45)
--- NOTE | 2018-02-05 14:54 | DIAGNOSTIC IMAGING REPORT ---
RETROGRADE INCLUDES KUB CLINICAL HISTORY: 73 years-old Male presenting with LEFT STENT. TECHNIQUE: 1 fluoroscopic image(s) recorded as part of an intraoperative procedure. COMPARISON: 02/04/2018. FINDINGS/IMPRESSION: There has been interval placement of a left ureteral stent. Please see surgical report for further details. Fluoroscopy dosage (mGy): 26.71. Fluoroscopy time: 65.6 seconds. Number or time of fluoroscopic spot images: 0. Electronically signed by: Amilcar Francis M.D. 02/05/2018 2:53 PM Dictated Date/Time: 02/05/2018 2:52 PM
--- NOTE | 2018-02-05 14:58 | [facility] Operative Report ---
Operative Report Operative Date Feb 05, 2018. Pre-Operative Diagnosis Nephrolithiasis Post-Operative Diagnosis left ureteral stone and urethral stricture Procedure(s) Performed Cystoscopy, left ureteral dilation, left stent insertion, left retrograde pyelography Surgeon Dr. Larose Outsole Beveler Surgeon(s) none Estimated Blood Loss 2mL Findings Cystoscopic exam revealed normal anterior urethra down to approximately the bulbar portion where there was a stricture bladder showed no mucosal abnormalities. Left retrograde showed proximal stone with hydronephrosis Specimens None Drains 6 Tun[place]ian by 26 cm left ureteral stent and a 16 [place] tip Lambert Anesthesia Type MAC Complication(s) none Disposition yes Recovery Room / PACU Indications Patient is a 73-year-old white male was admitted to the hospital with left flank pain secondary to a 1 cm stone in the proximal left ureter his creatinine has gone up as as well as his potassium is being brought in for stent placement. Description of Procedure An adequate level of intravenous sedation appropriate timeout patient was placed in the dorsolithotomy position. Lower abdomen and genitalia were prepped with Hibiclens and draped in a sterile fashion. Next using a 22 Tun[place]ian cystoscope cystoscopic exam was performed up to the level of the stricture was unable to get the scope negotiated through the area so 0.03 guidewire was passed through the stricture confirmed placement in the bladder by fluoroscopy. S dilators were used to dilate the stricture to 20 Tunisian. The scope was then again reintroduced per urethra and I was able to get through the stricture and into the bladder. Left ureteral orifice is identified. 0.03 guidewire was passed into the left ureter and then a 5 [place]ian open-ended catheter was passed over the guidewire. Left retrograde pyelogram was performed. Guidewire was then advanced under fluoroscopic guidance to position in the left renal pelvis. Open-ended catheter was removed and a 6 [place]ian by 26 cm left ureteral stent was passed over the guidewire under fluoroscopic guidance to position in the renal pelvis confirmed by fluoroscopy. Guidewire was removed there was a good curl at the bladder level. Cystoscope was removed. Elem tip catheter was passed over the guidewire to position in the bladder. Lambert was hooked to gravity drainage. All needle sponge and instrument counts were correct at the end of the case. Patient tolerated the procedure well and was taken recovery room in stable condition. I attest to the content of the Intraoperative Record and any orders documented therein. Any exceptions are noted below.
--- NOTE | 2018-02-05 15:41 | Anesthesiology Progress Note ---
Anesthesia Post Op Note Date & Time Feb 05, 2018 at 15:41 Vital Signs Pain Intensity: 0 Vital Signs Past 12 Hours Date Time Temp Pulse Resp B/P (MAP) Pulse Ox O2 Delivery O2 Flow Rate FiO2 02/05/18 15:30 37.2 65 16 141/77 93 Nasal Cannula 2 02/05/18 15:20 65 16 123/73 93 Nasal Cannula 2 02/05/18 15:10 61 16 131/76 96 Oxymask 10 02/05/18 15:00 61 16 132/74 97 Oxymask 10 02/05/18 14:50 36.8 63 16 114/65 94 Oxymask 10 02/05/18 13:22 36.9 63 18 141/86 (104) 92 Room Air 02/05/18 08:45 93 Room Air 02/05/18 07:55 36.6 63 16 130/80 (97) 93 Room Air 02/05/18 07:40 Room Air Notes Mental Status: alert / awake / arousable, participated in evaluation Pt Amnestic to Procedure: Yes Nausea / Vomiting: adequately controlled Pain: adequately controlled Airway Patency, RR, SpO2: stable & adequate BP & HR: stable & adequate Hydration State: stable & adequate Anesthetic Complications: no major complications apparent
[2018-02-06] MEDS: SODIUM CHLORIDE 0.9% 1000ML 1,000 ML IV SCH (03:44)
[2018-02-06 03:56] VITALS: BP 144/77; PULSE 81; TEMP 36.6; O2SAT 92
[2018-02-06] MEDS: LEVOTHYROXINE 75 MCG TAB PO SCH (05:27)
[2018-02-06 07:00] VITALS: BP 131/69; PULSE 68; TEMP 37.2; O2SAT 93
[2018-02-06] MEDS ORDERED: FLM4 PO (07:44)
[2018-02-06] MEDS ORDERED: OXYC-90 PO ×2 (07:44→11:00)
--- NOTE | 2018-02-06 07:46 | Discharge Instructions ---
Discharge Instructions Date of Service Feb 06, 2018. Admission Reason for Admission: Nephrolithiasis Discharge Discharge Diagnosis / Problem: Left kidney stone with stent Discharge Goals Goal(s): Diagnostic testing, Therapeutic intervention Activity Recommendations Activity Limitations: as noted below Lifting Limitations: gradually increase as tolerated . Current Hospital Diet Patient's current hospital diet: Regular Diet Discharge Diet Recommended Diet: Regular Diet Procedures Procedures Performed: Cystoscopy, left ureteral dilation, left stent insertion, left retrograde pyelography Pending Studies Studies pending at discharge: no Laboratory Results Hemoglobin A1c Test 11/06/17 09:45 Range/Units Estimated Average Glucose 126 mg/dl Hemoglobin A1c 6.0 H 4.5-5.6 % Lipid Panel Test 11/06/17 09:45 Range/Units Triglycerides Level 85 0-150 mg/dl Cholesterol Level 128 0-200 mg/dl HDL Cholesterol 33 mg/dl LDL Cholesterol Direct 85 mg/dl Cholesterol/HDL Ratio 3.9 LDL Cholesterol, Calculated mg/dl Medical Emergencies . Who to Call and When: Medical Emergencies: If at any time you feel your situation is an emergency, please call 911 immediately. . Non-Emergent Contact Non-Emergency issues call your: Primary Care Provider, Urologist Call Non-Emergent contact if: temperature is above 101, your pain is not controlled . . "Provider Documentation" section prepared by Oziel Fajardo. .
[2018-02-06 07:50] VITALS: BP_SYST 150; BP_SYST 161; BP_DIAS 100; BP_DIAS 87; PULSE 60; TEMP 37.3; O2SAT 90
[2018-02-06] MEDS: TAMSULOSIN HCL 0.4 MG CAP PO SCH (08:55)
[2018-02-06] MEDS: FLUOXETINE HCL 20 MG CAP PO SCH (08:55)
[2018-02-06] MEDS: METOPROLOL TARTRATE 50 MG TAB PO SCH (08:55)
[2018-02-06 09:19] LABS: CALCIUM 8.2 mg/dl (8.5-10.1); CREATININE 1.18 mg/dl (0.60-1.40)
[2018-02-06 09:33] VITALS: BP 161/81
[2018-02-06 09:49] LABS: POTASSIUM 4.3 mmol/L (3.5-5.1)
--- NOTE | 2018-02-06 11:13 | Progress Note ---
Progress Note Date of Service Feb 06, 2018. Progress Note Postop day #1 from cystoscopy urethral dilatation and left stent placement Patient's afebrile vital signs are stable He offers no complaints Urine is clear in the Lambert Creatinine is improved His abdomen is benign Tolerating the stent well Impression Urethral stricture and obstructing left ureteral calculus Because I had to dilate the stricture I would leave the Lambert catheter in for several days he can certainly go home with the catheter. We will have him follow-up in our office in several days to remove the catheter for a voiding trial as well as schedule him for extracorporeal shockwave lithotripsy.
[2018-02-06 11:20] VITALS: BP 161/81; PULSE 60; TEMP 37.3; O2SAT 90
[2018-02-06 11:26] VITALS: BP 162/90; PULSE 67; TEMP 37; O2SAT 92
--- NOTE | 2018-02-06 13:36 | Discharge Summary ---
Discharge Summary Date of Service Feb 06, 2018. Discharge Summary Admission Date: Feb 04, 2018 at 08:05 Discharge Date: Feb 06, 2018 Discharge Disposition: Home Principal Diagnosis: left renal stone, cysto stent, soco Immunizations: Have You Had Influenza Vaccine: No History of Tetanus Vaccine?: Unknown History of Pneumococcal: No History of Hepatitis B Vaccine: No Procedures: Cystoscopy, left ureteral dilation, left stent insertion, left retrograde pyelography Medication Reconciliation New Medications: Oxycodone Ir (Roxicodone Ir) 5 Mg Tab 10 MG PO Q6H PRN for Pain, #20 TAB . Tamsulosin HCl (Tamsulosin HCl) 0.4 Mg Cap 0.4 MG PO QAM, #30 CAP Continued Medications: Aspirin (Aspirin Chewable) 81 Mg Chew 81 MG PO DAILY Atorvastatin (Lipitor) 80 Mg Tab 80 MG PO DAILY, TAB Fluoxetine Hcl (Prozac) 20 Mg Cap 20 MG PO DAILY, CAP Levothyroxine Sodium (Levothyroxine Sodium) 75 Mcg Tab 75 MCG PO DAILY Metoprolol Tartrate (Metoprolol Tartrate) 50 Mg Tab 50 MG PO BID, #60 TAB 11 Refills Discontinued Medications: Lisinopril (Lisinopril) 2.5 Mg Tab 2.5 MG PO DAILY, TAB Metoprolol Succinate (Metoprolol Succinate ER) 50 Mg Tabcr 50 MG PO DAILY Discharge Exam Review of Systems: Constitutional: No fever, No chills Cardiovascular: No chest pain, No edema Abdomen: No pain, No diarrhea Musculoskeletal: No joint pain, No swelling Psychiatric: No depression symptoms, No anxiety Physical Exam: General Appearance: WD/WN, + mild distress Eyes: normal inspection, sclerae normal Neck: supple, no JVD Abdomen / GI: normal bowel sounds, non tender, soft Hospital Course 73-year-old male here with left renal colic hydronephrosis and acute kidney injury urology consultation has pursued Cystoscopy, left ureteral dilation, left stent insertion, left retrograde pyelography, will follow up with the office Acute Kidney injury, concern if secondary to hydronephrosis, kayexalate, resolved coronary disease his aspirin is held. continue metoprolol 50 twice daily continue holding lisinopril 2.5 maintaining atorvastatin For his depression Prozac will be maintained at 20 Hypothyroidism is treated clinically stable Synthroid 75 mcg a day Total Time Spent: Greater than 30 minutes This includes examination of the patient, discharge planning, medication reconciliation, and communication with other providers. Discharge Instructions Please refer to the electronic Patient Visit Report (Discharge Instructions) for additional information.
[2018-02-06] MEDS ORDERED: TPRSR/50 PO (13:58)
== END 2018-02-06 14:50 | disposition home or self-care (01) | DRG 694 ==
LOC: C.EDB 05:34 → ENRESERV 07:39 → EDBEDREQ 07:45 → C.MSW 08:05
PROVIDERS: ADMIT Internal Medicine; ATTEND Internal Medicine
PROC: BT14ZZZ Fluoroscopy of Kidneys, Ureters and Bladder (ICD-10-PCS; principal; 2018-02-05 11:00)
PROC: 0T774DZ Dilation of Left Ureter with Intraluminal Device, Percutaneous Endoscopic Approach (ICD-10-PCS; principal; 2018-02-05 11:00)
DX: N13.2 Hydronephrosis with renal and ureteral calculous obstruction (principal); N17.9 Acute kidney failure, unspecified; E03.9 Hypothyroidism, unspecified; E78.5 Hyperlipidemia, unspecified; I25.10 Atherosclerotic heart disease of native coronary artery without angina pectoris; I25.2 Old myocardial infarction; F32.9 Major depressive disorder, single episode, unspecified; Z79.899 Other long term (current) drug therapy; Z79.82 Long term (current) use of aspirin

== ENCOUNTER 2021-01-14 12:12 | Observation (INO) ==
[2021-01-14] MEDS ORDERED: ALUMINUM/MAGNESIUM SUSP 30 ML UDC PO STA (12:26)
--- NOTE | 2021-01-14 12:39 | XRay Report ---
XR chest 1V portable HISTORY: 75 years-old Male Chest Pain acute atypical chest pain COMPARISON: 01/13/2019 TECHNIQUE: Portable AP view of the chest FINDINGS: Cardiac silhouette is enlarged. Pulmonary vascular congestion with mild bibasilar densities. No pneum othorax or large pleural effusion. No lobar airspace consolidation. Degenerative changes of the shoul ders and spine. IMPRESSION: 1. Cardiomegaly with pulmonary vascular congestion. 2. Mild bibasilar densities suggestive of atelectasis. ACT 112: Negative or not required by law. The above report was generated using voice recognition software. It may contain grammatical, syntax o r spelling errors. Electronically signed by: Cory Stone M.D. 01/14/2021 12:37 PM
[2021-01-14 12:42] LABS: Basophils # (auto) 0.02 K/uL (0-0.2); Basophils % (auto) 0.3 %; Eosinophils # (auto) 0.09 K/uL (0-0.5); Eosinophils % (auto) 1.3 %; Hematocrit (blood only) 42.6 % (42-52); Hemoglobin 14.4 g/dL (14.0-18.0); Immature Granulocytes # (auto) 0.01 K/uL (0.00-0.02); Immature Granulocytes % (auto) 0.1 %; Lymphocytes # (auto) 2.21 K/uL (1.2-3.4); Lymphocytes % (auto) 31.5 %; Mean Corpuscular Hemoglobin 31.2 pg (25-34); Mean Corpuscular Hgb Conc 33.8 g/dL (32-36); Mean Corpuscular Volume 92.4 fL (80-100); Monocytes # (auto) 0.74 K/uL (0.11-0.59); Monocytes % (auto) 10.6 %; Neutrophils # (auto) 3.94 K/uL (1.4-6.5); Neutrophils % (auto) 56.2 %; Platelet Count 185 K/uL (130-400); RDW Coefficient of Variation 13.4 % (11.5-14.5); RDW Standard Deviation 45.7 fL (36.4-46.3); Red Blood Count 4.61 M/uL (4.7-6.1); White Blood Count 7.01 K/uL (4.8-10.8)
[2021-01-14 12:54] LABS: Partial Thromboplastin Ratio 0.9; Prothrombin Time 10.5 Seconds (9.0-12.0)
[2021-01-14 13:06] LABS: Alanine Aminotransferase 40 U/L (12-78); Albumin Level 3.3 gm/dl (3.4-5.0); Aspartate Aminotransferase 29 U/L (15-37); Blood Urea Nitrogen 17 mg/dl (7-18); Calcium 8.5 mg/dl (8.5-10.1); Carbon Dioxide 25 mmol/L (21-32); Chloride 109 mmol/L (98-107); Creatinine Clr Calc Pharmacy 69.5 ml/min; Est GFR (African American) 82.2 ml/min; Est GFR (Non-African American) 70.9 ml/min; Glucose 136 mg/dl (70-99); Lipase 115 U/L (73-393); Potassium 4.3 mmol/L (3.5-5.1); Sodium 140 mmol/L (136-145)
--- NOTE | 2021-01-14 13:06 | Emergency Department Note ---
Impression & Plan Chest pain ED Provider Note Have a historyNAME: TAYLA IRAHETA AGE: 75 SEX: M : 1945 ARRIVES VIA: Ambulance INFORMANT: Patient, ED PROVIDER(S): Bashir Oseguera DO CHIEF COMPLAINT: Chest pain HPI: The patient is a 75-year-old male who presented to the emergency department by ambulance for an evaluation of chest pain. The patient states he had an acute onset of chest pain which was anterior and substernal. He was in his eye doctor's office getting dilated for an exam when the symptoms started. He states the pain is since started to migrate to the epigastric region. The pain is not reproducible. He does not have any nausea. Reportedly the patient did have some diaphoresis with the onset of the pain. He denies having any fever or cough. The patient was sent directly to the emergency department by the eye do ctor's office. The patient has a history of STEMI in the past and has a heart catheterization with a stent. He states the pain is similar. He also was recently worked up for gallbladder issues. He states this does not feel like his gallbladder issues. He denies having any dark or bloody bowel movements. He denies having any shortness of breath at this time. He denies having any lower extremity swelling or pain. He states he still has the pain but it is significantly improved. ROS: See above HPI for pertinent positives & negatives. A total of 10 systems reviewed and were otherwise negative. PAST MEDICAL HISTORY: See Below PAST SURGICAL HISTORY: See Below FAMILY HISTORY: See Below SOCIAL HISTORY: See Below HOME MEDICATIONS: See Below ALLERGIES: See Below VITALS: See Below PHYSICAL EXAMINATION: GENERAL: Patient is awake alert in no acute distress patient is resting comfortably and showing no signs of anxiety EYES: The conjunctivae are clear. The pupils are round and reactive. EARS, NOSE, MOUTH AND THROAT: The nose is without any evidence of any deformity. NECK: The neck is nontender and supple. RESPIRATORY: Normal respiratory effort is noted there is no evidence of wheezing rhonchi or rales CARDIOVASCULAR: Regular rate and rhythm noted there no murmurs rubs or gallops normal S1 normal S2. GASTROINTESTINAL: The abdomen is soft. Abdomen is nontender. MUSCULOSKELETAL/EXTREMITIES: There is no evidence of gross deformity full range of motion is noted in the hips and shoulders. SKIN: There is no obvious evidence of any rash. There are no petechiae, pallor or cyanosis noted. NEUROLOGIC: Patient is awake alert and oriented x3. MEDICAL DECISION MAKING: The patient is a 75-year-old male who presented to the emergency department for an evaluation of chest pain. Of coronary artery disease and stenting approximately 7 years ago. The patient had an acute onset of anterior chest pain. He described it as a pressure. Patient was treated with aspirin and nitroglycerin prior to arrival. I discussed the patient's laboratory and radiographic studies with him. I also discussed the limitations of the emergency department work-up for chest pain with him. Ultimately given the patient's risk factors I [facility] agreed to evaluate the patient in the emergency department for further management and disposition. I do feel the patient is high risk and I do not feel outpatient treatment would be prudent however the patient did have serial EKG and serial troponin measurements in the ER that were both negative. Triage Nursing notes reviewed. Prior medical records reviewed Vital Signs: reviewed and remarkable for no significant abnormalities Differential diagnosis: Cardiac ischemia, aortic dissection, pulmonary embolism, pneumothorax, pneumonia, pericarditis, myocarditis, esophageal rupture, GERD, cholecystitis, pancreatitis, musculoskeletal, as well as other pathologies. ER treatment provided: See below Diagnostics interpreted by me: ECG: EKG was obtained in the emergency department. My interpretation is sinus bradycardia at 53 bpm. There is no ectopy. There is no acute ST segment abnormalities noted. This was compared to a tracing from January 132018. No significant changes were noted. A second EKG was obtained in the emergency department. My interpretation is sinus bradycardia 53 bpm. There is no ectopy. This was compared to an earlier tracing and no significant changes were noted. A prehospital EKG was obtained and my interpretation is sinus bradycardia at 44 bpm. There is no ectopy. There is no acute ST segment abnormalities noted. There is no significant change compared to the tracing we obtained in the emergency department. Cardiac Monitoring: An order was placed for continuous cardiac monitoring. The monitor shows a rate of 59 bpm with sinus bradycardia rhythm. Laboratory studies: As stated above and show below. Imaging studies: See below Consultation(s): I discussed this case with Dr. Alfred who [facility] He is agreed to evaluate the patient in the emergency department for further management and disposition. Past Med/Surg History Medical History (Updated 01/14/21 @ 19:35 by Bashir Oseguear DO) Depression Hyperlipidemia Hyperlipidemia Hypertension Hypothyroidism Kidney stones Myocardial Infarction 4 YEARS AGO, STENT X2 [facility]--follows with Dr. Andrade STEMI (ST elevation myocardial infarction) Thyroid disorder Surgical History History of appendectomy History of cardiac cath STENTS X2 [facility] History of colonoscopy History of lithotripsy Hx of vasectomy S/P coronary artery stent placement Status post cystoscopy with ureteral stent placement Family History Aunt Cancer Other Heart disease Social History Smoking Status: Never smoker Second Hand Exposure: No; Hx Alcohol Use: Yes Alcohol type: beer, wine and hard liquor Hx Substance Use: No Preferred Language: Khmer Communication Ability: Effective Payroll Lead Required: No Beliefs That Will Affect Care: None marital status: Current Living Situation: Spouse Feels Safe at Home: Yes Assistive Devices: Denture - Upper and Glasses Allergies Allergies Allergy/AdvReac Type Severity Reaction Status Date / Time No Known Allergies Allergy Verified 01/14/21 15:05 Home Meds Home Medications Medication Instructions Recorded Confirmed fluoxetine 20 mg capsule 20 mg PO QAM 02/16/18 01/14/21 lisinopril 2.5 mg tablet 2.5 mg PO QAM 05/06/18 01/14/21 aspirin 81 mg tablet,delayed 81 mg PO QAM 11/07/18 01/14/21 release (Aspirin Low Dose) levothyroxine 75 mcg tablet 75 mcg PO QAM 01/13/19 01/14/21 metoprolol succinate 50 mg 25 mg PO QAM tab 12/27/20 01/14/21 tablet,extended release 24 hr atorvastatin 80 mg tablet 80 mg PO DAILY 01/14/21 01/14/21 Previous Rx's Medication Instructions Recorded rosuvastatin 40 mg tablet 40 mg PO DAILY #30 tab 12/27/20 Results & Data (ED) Vital Signs Vital Signs - 24 hr 01/14/21 12:17 01/14/21 12:26 01/14/21 12:52 Temperature 36.8 C Temperature Source Oral Pulse Rate 56 L 51 L 51 L Pulse Rate from SpO2 Sensor Pulse Rhythm Regular Pulse Strength Normal Respiratory Rate 18 18 17 Respiratory Effort / Characteristics Non-Labored Respiratory Depth Normal Respiratory Pattern Regular Blood Pressure 133/79 165/84 H Blood Pressure Mean 97 111 Blood Pressure Position Lying Pulse Oximetry 95 100 96 Oxygen Delivery Method Room Air Room Air Room Air Sepsis Recent Fever Within 48 Hours No Sepsis New/Unexplained Change in Mental Status N/A Sepsis Action Taken by Nursing No Action Required 01/14/21 13:00 01/14/21 13:15 01/14/21 13:30 Temperature Temperature Source Pulse Rate 50 L 52 L 47 L Pulse Rate from SpO2 Sensor Pulse Rhythm Pulse Strength Respiratory Rate 17 15 19 Respiratory Effort / Characteristics Respiratory Depth Respiratory Pattern Blood Pressure 154/83 H 150/74 H 134/70 Blood Pressure Mean 106 99 91 Blood Pressure Position Pulse Oximetry 96 96 95 Oxygen Delivery Method Room Air Room Air Room Air Sepsis Recent Fever Within 48 Hours Sepsis New/Unexplained Change in Mental Status Sepsis Action Taken by Nursing 01/14/21 13:45 01/14/21 14:00 01/14/21 14:30 Temperature Temperature Source Pulse Rate 53 L 52 L 75 Pulse Rate from SpO2 Sensor Pulse Rhythm Pulse Strength Respiratory Rate 14 13 20 Respiratory Effort / Characteristics Respiratory Depth Respiratory Pattern Blood Pressure 150/79 H 171/84 H Blood Pressure Mean 102 113 Blood Pressure Position Pulse Oximetry 96 97 98 Oxygen Delivery Method Room Air Room Air Room Air Sepsis Recent Fever Within 48 Hours Sepsis New/Unexplained Change in Mental Status Sepsis Action Taken by Nursing 01/14/21 14:45 01/14/21 15:00 01/14/21 15:15 Temperature Temperature Source Pulse Rate 54 L 65 54 L Pulse Rate from SpO2 Sensor Pulse Rhythm Pulse Strength Respiratory Rate 16 17 15 Respiratory Effort / Characteristics Respiratory Depth Respiratory Pattern Blood Pressure 178/100 H 162/93 H 168/96 H Blood Pressure Mean 126 116 120 Blood Pressure Position Pulse Oximetry 99 97 96 Oxygen Delivery Method Room Air Room Air Room Air Sepsis Recent Fever Within 48 Hours Sepsis New/Unexplained Change in Mental Status Sepsis Action Taken by Nursing 01/14/21 15:30 01/14/21 16:00 01/14/21 16:30 Temperature Temperature Source Pulse Rate 72 57 L 72 Pulse Rate from SpO2 Sensor 55 L 71 Pulse Rhythm Pulse Strength Respiratory Rate 13 14 21 Respiratory Effort / Characteristics Respiratory Depth Respiratory Pattern Blood Pressure 167/86 H 163/93 H Blood Pressure Mean 113 116 Blood Pressure Position Pulse Oximetry 97 99 97 Oxygen Delivery Method Room Air Room Air Room Air Sepsis Recent Fever Within 48 Hours Sepsis New/Unexplained Change in Mental Status Sepsis Action Taken by Nursing 01/14/21 16:37 01/14/21 17:00 01/14/21 17:30 Temperature Temperature Source Pulse Rate 68 55 L 50 L Pulse Rate from SpO2 Sensor 74 55 L 56 L Pulse Rhythm Pulse Strength Respiratory Rate 26 H 12 6 L Respiratory Effort / Characteristics Respiratory Depth Respiratory Pattern Blood Pressure 155/87 H 160/91 H 163/90 H Blood Pressure Mean 109 114 114 Blood Pressure Position Pulse Oximetry 94 97 98 Oxygen Delivery Method Room Air Room Air Room Air Sepsis Recent Fever Within 48 Hours Sepsis New/Unexplained Change in Mental Status Sepsis Action Taken by Nursing 01/14/21 17:45 01/14/21 18:00 01/14/21 18:15 Temperature Temperature Source Pulse Rate 59 L 60 Pulse Rate from SpO2 Sensor 60 62 60 Pulse Rhythm Pulse Strength Respiratory Rate 19 19 Respiratory Effort / Characteristics Respiratory Depth Respiratory Pattern Blood Pressure 147/88 H 153/68 H 153/85 H Blood Pressure Mean 107 96 107 Blood Pressure Position Pulse Oximetry 99 95 94 Oxygen Delivery Method Room Air Room Air Room Air Sepsis Recent Fever Within 48 Hours Sepsis New/Unexplained Change in Mental Status Sepsis Action Taken by Nursing 01/14/21 18:31 01/14/21 18:45 Temperature Temperature Source Pulse Rate 60 59 L Pulse Rate from SpO2 Sensor 59 L 59 L Pulse Rhythm Pulse Strength Respiratory Rate 22 17 Respiratory Effort / Characteristics Respiratory Depth Respiratory Pattern Blood Pressure 151/75 H 132/78 Blood Pressure Mean 100 96 Blood Pressure Position Pulse Oximetry 97 95 Oxygen Delivery Method Room Air Room Air Sepsis Recent Fever Within 48 Hours Sepsis New/Unexplained Change in Mental Status Sepsis Action Taken by Prison Medications Current Medication List: was personally reviewed by me Laboratory Data Attestation: I reviewed the patient's lab results. Result diagrams: 01/14/21 12:25 01/14/21 12:25 Lab Results 01/14/21 01/14/21 01/14/21 Range/Units 12:25 12:25 12:25 WBC 7.01 (4.8-10.8) K/uL RBC 4.61 L (4.7-6.1) M/uL Hgb 14.4 (14.0-18.0) g/dL Hct 42.6 (42-52) % MCV 92.4 (80-100) fL MCH 31.2 (25-34) pg MCHC 33.8 (32-36) g/dL RDW Std Deviation 45.7 (36.4-46.3) fL RDW Coeff of Cherie 13.4 (11.5-14.5) % Plt Count 185 (130-400) K/uL MPV 10.0 (7.4-10.4) fL Immature Gran % (Auto) 0.1 % Neut % (Auto) 56.2 % Lymph % (Auto) 31.5 % Will % (Auto) 10.6 % Eos % (Auto) 1.3 % Baso % (Auto) 0.3 % Neut # (Auto) 3.94 (1.4-6.5) K/uL Lymph # (Auto) 2.21 (1.2-3.4) K/uL Will # (Auto) 0.74 H (0.11-0.59) K/uL Eos # (Auto) 0.09 (0-0.5) K/uL Baso # (Auto) 0.02 (0-0.2) K/uL Immature Gran # (Auto) 0.01 (0.00-0.02) K/uL PT 10.5 (9.0-12.0) Seconds INR 1.0 (0.9-1.1) APTT 23.0 (21.0-31.0) Seconds PTT Ratio 0.9 Sodium 140 (136-145) mmol/L Potassium 4.3 (3.5-5.1) mmol/L Chloride 109 H (98-107) mmol/L Carbon Dioxide 25 (21-32) mmol/L Anion Gap 6.0 (3-11) BUN 17 (7-18) mg/dl Creatinine 1.04 (0.6-1.4) mg/dl Est Cr Clr Drug Dosing 69.5 ml/min Est GFR ( Amer) 82.2 ml/min Est GFR (Non-Af Amer) 70.9 ml/min BUN/Creatinine Ratio 16.0 (10-20) Glucose 136 H (70-99) mg/dl Calcium 8.5 (8.5-10.1) mg/dl Total Bilirubin 0.6 (0.2-1) mg/dl AST 29 (15-37) U/L ALT 40 (12-78) U/L Alkaline Phosphatase 88 (45-117) U/L Troponin I < 0.015 (0-0.045) ng/ml Total Protein 7.2 (6.4-8.2) gm/dl Albumin 3.3 L (3.4-5.0) gm/dl Globulin 3.9 (2.5-4.0) gm/dl Albumin/Globulin Ratio 0.8 L (0.9-2) Lipase 115 (73-393) U/L COVID-19 Eval Order SARS-CoV-2 (PCR) (Negative) 01/14/21 01/14/21 01/14/21 Range/Units 14:40 Unknown Unknown WBC (4.8-10.8) K/uL RBC (4.7-6.1) M/uL Hgb (14.0-18.0) g/dL Hct (42-52) % MCV (80-100) fL MCH (25-34) pg MCHC (32-36) g/dL RDW Std Deviation (36.4-46.3) fL RDW Coeff of Cherie (11.5-14.5) % Plt Count (130-400) K/uL MPV (7.4-10.4) fL Immature Gran % (Auto) % Neut % (Auto) % Lymph % (Auto) % Will % (Auto) % Eos % (Auto) % Baso % (Auto) % Neut # (Auto) (1.4-6.5) K/uL Lymph # (Auto) (1.2-3.4) K/uL Will # (Auto) (0.11-0.59) K/uL Eos # (Auto) (0-0.5) K/uL Baso # (Auto) (0-0.2) K/uL Immature Gran # (Auto) (0.00-0.02) K/uL PT (9.0-12.0) Seconds INR (0.9-1.1) APTT (21.0-31.0) Seconds PTT Ratio Sodium (136-145) mmol/L Potassium (3.5-5.1) mmol/L Chloride (98-107) mmol/L Carbon Dioxide (21-32) mmol/L Anion Gap (3-11) BUN (7-18) mg/dl Creatinine (0.6-1.4) mg/dl Est Cr Clr Drug Dosing ml/min Est GFR ( Amer) ml/min Est GFR (Non-Af Amer) ml/min BUN/Creatinine Ratio (10-20) Glucose (70-99) mg/dl Calcium (8.5-10.1) mg/dl Total Bilirubin (0.2-1) mg/dl AST (15-37) U/L ALT (12-78) U/L Alkaline Phosphatase (45-117) U/L Troponin I < 0.015 (0-0.045) ng/ml Total Protein (6.4-8.2) gm/dl Albumin (3.4-5.0) gm/dl Globulin (2.5-4.0) gm/dl Albumin/Globulin Ratio (0.9-2) Lipase (73-393) U/L COVID-19 Eval Order Covid19 at [facility] SARS-CoV-2 (PCR) NEGATIVE (Negative) Administered Medications Discontinued Medications Al Hydrox/Mg Hydrox/Simethicone (Aluminum/Magnesium Susp 30 Ml Udc) 30 ml PO NOW STA Stop: 01/14/21 12:27 Last Admin: 01/14/21 12:34 Dose: 30 ml Documented by: [id number] Imaging Data Radiologist's Impression: Chest X-Ray 01/14/21 12:26 XR chest 1V portable HISTORY: 75 years-old Male Chest Pain acute atypical chest pain COMPARISON: 01/13/2019 TECHNIQUE: Portable AP view of the chest FINDINGS: Cardiac silhouette is enlarged. Pulmonary vascular congestion with mild bibasilar densities. No pneumothorax or large pleural effusion. No lobar airspace consolidation. Degenerative changes of the shoulders and spine. IMPRESSION: 1. Cardiomegaly with pulmonary vascular congestion. 2. Mild bibasilar densities suggestive of atelectasis. ACT 112: Negative or not required by law. The above report was generated using voice recognition software. It may contain grammatical, syntax or spelling errors. Electronically signed by: Cory Stone M.D. 01/14/2021 12:37 PM Discharge Plan Visit Data Chief Complaint: Chest Pain ED Provider: Bashir Oseguera Discharge Problem: Chest pain Patient Disposition: Being Evaluated by Hospitalist Condition: Good Forms Stand Alone Forms: My [facility] [place] [employer] Search Prescriptions Prescriptions: No Action rosuvastatin 40 mg tablet 40 mg PO DAILY Qty: 30 RF: 6 fluoxetine 20 mg Capsule 20 mg PO QAM RF: 0 metoprolol succinate 50 mg tablet extended release 24 hr 25 mg PO QAM RF: 0 lisinopril 2.5 mg tablet 2.5 mg PO QAM RF: 0 aspirin [Aspirin Low Dose] 81 mg Tablet,Delayed Release (Dr/Ec) 81 mg PO QAM RF: 0 levothyroxine 75 mcg tablet 75 mcg PO QAM RF: 0 atorvastatin 80 mg tablet 80 mg PO DAILY RF: 0 Referrals Referrals: Humphrey Eubanks MD [Primary Care Provider] -
[2021-01-14 13:11] LABS: Albumin Globulin Ratio 0.8 (0.9-2); Alkaline Phosphatase 88 U/L (45-117); Bilirubin,Total 0.6 mg/dl (0.2-1); Globulin 3.9 gm/dl (2.5-4.0); Total Protein 7.2 gm/dl (6.4-8.2); Troponin I < 0.015 ng/ml (0-0.045)
--- NOTE | 2021-01-14 18:57 | History & Physical Report ---
Date of Service January 14, 2021 Assessment & Plan (1) Chest pain: Plan: Chest pain does sound noncardiac, may be GI. However, patient has significant risk factors including past medical history. Placed in monitored observation Trend troponins Recheck EKG Will order stress echo for the morning (2) CAD (coronary artery disease): Plan: Continue medications as per outpatient including low-dose aspirin, statin, lisinopril, metoprolol (3) Hypertension: Plan: Continue medications as noted above Blood pressure remains elevated, may need adjustment (4) Hypothyroidism: Plan: Levothyroxine 75 mcg daily Check TSH History of Present Illness Chief Complaint: Chest pain Primary Care Provider: Humphrey Eubanks MD This is a 75-year-old male with past medical history CAD status post [place], stent x2 that presents today complaining of chest pain. Patient is a decent historian. Patient tells me that he was at the eye doctor earlier today getting a routine exam. Right after his eyes were dilated he started to have epigastric pain. This felt like more of a pressure without radiation. It was accompanied by diaphoresis. Patient was sent directly from the traffic court referee to the ER for further evaluation. Patient tells me the pain persisted 1-2 hours and then resolved. I he had been given nitro and an aspirin which he feels did not affect the pain. He was then given Maalox which he feels significantly contributed. He denied any belching or abdominal pain with this. He denied any shortness of breath as well. During work-up in the ER, patient has had no further issues. He does have a mildly elevated blood pressure with a systolic in the 150s. Patient was debating whether to sign out AGAINST MEDICAL ADVICE but he decided to stay for evaluation here. So far work-up is been negative with the first set of troponins being nondetectable. Allergies Allergy/AdvReac Type Severity Reaction Status Date / Time No Known Allergies Allergy Verified 01/14/21 15:05 Home Medications Medication Instructions Recorded Confirmed Type fluoxetine 20 mg capsule 20 mg PO QAM 02/16/18 01/14/21 History lisinopril 2.5 mg tablet 2.5 mg PO QAM 05/06/18 01/14/21 History aspirin 81 mg tablet,delayed 81 mg PO QAM 11/07/18 01/14/21 History release (Aspirin Low Dose) levothyroxine 75 mcg tablet 75 mcg PO QAM 01/13/19 01/14/21 History metoprolol succinate 50 mg 25 mg PO QAM tab 12/27/20 01/14/21 History tablet,extended release 24 hr rosuvastatin 40 mg tablet 40 mg PO DAILY #30 tab 12/27/20 01/14/21 Rx atorvastatin 80 mg tablet 80 mg PO DAILY 01/14/21 01/14/21 History Past Med/Surg History Medical History (Updated 01/14/21 @ 18:55 by Omar Alfred DO) Depression Hyperlipidemia Hyperlipidemia Hypertension Hypothyroidism Kidney stones Myocardial Infarction 4 YEARS AGO, STENT X2 [facility]--follows with Dr. Andrade STEMI (ST elevation myocardial infarction) Thyroid disorder Surgical History History of appendectomy History of cardiac cath STENTS X2 [facility] History of colonoscopy History of lithotripsy Hx of vasectomy S/P coronary artery stent placement Status post cystoscopy with ureteral stent placement Family History Aunt Cancer Other Heart disease Social History Smoking Status: Never smoker Second Hand Exposure: No; Hx Alcohol Use: Yes Alcohol type: beer, wine and hard liquor Hx Substance Use: No Preferred Language: Azeri Communication Ability: Effective Escalator Installer Required: No Beliefs That Will Affect Care: None marital status: Current Living Situation: Spouse Feels Safe at Home: Yes Assistive Devices: Denture - Upper and Glasses Review of Systems Constitutional: + sweats; no fever, no chills, no weakness, no weight loss and no weight gain Eyes: as per Subjective / HPI Respiratory: no cough, no chest congestion, no dyspnea and no dyspnea on exertion Cardiovascular: + chest pain; no orthopnea, no palpitations, no lightheadedness and no edema Gastrointestinal: no abdominal pain, no nausea, no vomiting, no constipation and no diarrhea/loose stools Musculoskeletal: no back pain, no neck pain, no joint pain, no stiffness and no myalgia Integumentary: no rash Neurologic: no gait abnormality, no unsteadiness, no falls and no generalized weakness Physical Exam Constitutional: cooperative; no acute distress Neck: trachea midline, no thyromegaly Respiratory: normal respiratory effort Auscultation: lungs clear to auscultation bilaterally; no crackles, no rales, no rhonchi and no wheezes Cardiovascular: Rate/Rhythm: regular rate and regular rhythm Heart Sounds: normal S1 and normal S2 Gastrointestinal (Abdomen): Inspection/Auscultation: abdomen normal to inspection Percussion/Palpation: abdomen soft; abdomen nontender, no guarding, abdomen not rigid and no hepatosplenomegaly Skin: no rashes, warm and dry Results & Data Results & Data ([facility]) Vital Signs (Past 12 Hours) Vital Signs Temp Pulse Resp BP Pulse Ox 01/14/21 18:45 59 L 17 132/78 95 01/14/21 18:31 60 22 151/75 H 97 01/14/21 18:15 60 19 153/85 H 94 01/14/21 18:00 153/68 H 95 01/14/21 17:45 59 L 19 147/88 H 99 01/14/21 17:30 50 L 6 L 163/90 H 98 01/14/21 17:00 55 L 12 160/91 H 97 01/14/21 16:37 68 26 H 155/87 H 94 01/14/21 16:30 72 21 97 01/14/21 16:00 57 L 14 163/93 H 99 01/14/21 15:30 72 13 167/86 H 97 01/14/21 15:15 54 L 15 168/96 H 96 01/14/21 15:00 65 17 162/93 H 97 01/14/21 14:45 54 L 16 178/100 H 99 01/14/21 14:30 75 20 98 01/14/21 14:00 52 L 13 171/84 H 97 01/14/21 13:45 53 L 14 150/79 H 96 01/14/21 13:30 47 L 19 134/70 95 01/14/21 13:15 52 L 15 150/74 H 96 01/14/21 13:00 50 L 17 154/83 H 96 01/14/21 12:52 51 L 17 165/84 H 96 01/14/21 12:26 51 L 18 100 01/14/21 12:17 36.8 C 56 L 18 133/79 95 Laboratory Results Laboratory Results WBC 7.01 K/uL (4.8-10.8) 01/14/21 12:25 RBC 4.61 M/uL (4.7-6.1) L 01/14/21 12:25 Hgb 14.4 g/dL (14.0-18.0) 01/14/21 12:25 Hct 42.6 % (42-52) 01/14/21 12:25 MCV 92.4 fL (80-100) 01/14/21 12:25 MCH 31.2 pg (25-34) 01/14/21 12:25 MCHC 33.8 g/dL (32-36) 01/14/21 12:25 RDW Std Deviation 45.7 fL (36.4-46.3) 01/14/21 12:25 RDW Coeff of Cherie 13.4 % (11.5-14.5) 01/14/21 12:25 Plt Count 185 K/uL (130-400) 01/14/21 12:25 MPV 10.0 fL (7.4-10.4) 01/14/21 12:25 Immature Gran % (Auto) 0.1 % 01/14/21 12:25 Neut % (Auto) 56.2 % 01/14/21 12:25 Lymph % (Auto) 31.5 % 01/14/21 12:25 [place] % (Auto) 10.6 % 01/14/21 12:25 Eos % (Auto) 1.3 % 01/14/21 12:25 Baso % (Auto) 0.3 % 01/14/21 12:25 Neut # (Auto) 3.94 K/uL (1.4-6.5) 01/14/21 12:25 Lymph # (Auto) 2.21 K/uL (1.2-3.4) 01/14/21 12:25 [place] # (Auto) 0.74 K/uL (0.11-0.59) H 01/14/21 12:25 Eos # (Auto) 0.09 K/uL (0-0.5) 01/14/21 12:25 Baso # (Auto) 0.02 K/uL (0-0.2) 01/14/21 12:25 Immature Gran # (Auto) 0.01 K/uL (0.00-0.02) 01/14/21 12:25 PT 10.5 Seconds (9.0-12.0) 01/14/21 12:25 INR 1.0 (0.9-1.1) 01/14/21 12:25 APTT 23.0 Seconds (21.0-31.0) 01/14/21 12:25 PTT Ratio 0.9 01/14/21 12:25 Sodium 140 mmol/L (136-145) 01/14/21 12:25 Potassium 4.3 mmol/L (3.5-5.1) 01/14/21 12:25 Chloride 109 mmol/L (98-107) H 01/14/21 12:25 Carbon Dioxide 25 mmol/L (21-32) 01/14/21 12:25 Anion Gap 6.0 (3-11) 01/14/21 12:25 BUN 17 mg/dl (7-18) 01/14/21 12:25 Creatinine 1.04 mg/dl (0.6-1.4) 01/14/21 12:25 Est Cr Clr Drug Dosing 69.5 ml/min 01/14/21 12:25 Est GFR ( Amer) 82.2 ml/min 01/14/21 12:25 Est GFR (Non-Af Amer) 70.9 ml/min 01/14/21 12:25 BUN/Creatinine Ratio 16.0 (10-20) 01/14/21 12:25 Glucose 136 mg/dl (70-99) H 01/14/21 12:25 Calcium 8.5 mg/dl (8.5-10.1) 01/14/21 12:25 Total Bilirubin 0.6 mg/dl (0.2-1) 01/14/21 12:25 AST 29 U/L (15-37) 01/14/21 12:25 ALT 40 U/L (12-78) 01/14/21 12:25 Alkaline Phosphatase 88 U/L (45-117) 01/14/21 12:25 Troponin I < 0.015 ng/ml (0-0.045) 01/14/21 14:40 Total Protein 7.2 gm/dl (6.4-8.2) 01/14/21 12:25 Albumin 3.3 gm/dl (3.4-5.0) L 01/14/21 12:25 Globulin 3.9 gm/dl (2.5-4.0) 01/14/21 12:25 Albumin/Globulin Ratio 0.8 (0.9-2) L 01/14/21 12:25 Lipase 115 U/L (73-393) 01/14/21 12:25 COVID-19 Eval Order Covid19 at [facility] 01/14/21 Unknown Impressions Chest X-Ray 01/14/21 12:26 XR chest 1V portable HISTORY: 75 years-old Male Chest Pain acute atypical chest pain COMPARISON: 01/13/2019 TECHNIQUE: Portable AP view of the chest FINDINGS: Cardiac silhouette is enlarged. Pulmonary vascular congestion with mild bibasilar densities. No pneumothorax or large pleural effusion. No lobar airspace consolidation. Degenerative changes of the shoulders and spine. IMPRESSION: 1. Cardiomegaly with pulmonary vascular congestion. 2. Mild bibasilar densities suggestive of atelectasis. ACT 112: Negative or not required by law. The above report was generated using voice recognition software. It may contain grammatical, syntax or spelling errors. Electronically signed by: Cory Stone M.D. 01/14/2021 12:37 PM PG Care Time/CCT Total # of Minutes Spent Total Time Spent with Patient: Total time spent is greater than 50% in coordination of care (as documented) at patient's floor/unit and/or counseling patient: Coding Level of Care Code INT OBSERVATION CARE 70M LVL 3 Diagnoses CAD (coronary artery disease) I25.10 Hypothyroidism E03.9 Chest pain R07.9 Hypertension I10
[2021-01-14] MEDS ORDERED: ACETAMINOPHEN 325 MG TAB PO PRN (20:38)
[2021-01-14] MEDS ORDERED: ALUMINUM/MAGNESIUM SUSP 30 ML UDC PO PRN (20:38)
[2021-01-15 03:12] LABS: Basophils # (auto) 0.01 K/uL (0-0.2); Basophils % (auto) 0.1 %; Eosinophils # (auto) 0.04 K/uL (0-0.5); Eosinophils % (auto) 0.6 %; Hematocrit (blood only) 41.1 % (42-52); Hemoglobin 14.4 g/dL (14.0-18.0); Immature Granulocytes # (auto) 0.01 K/uL (0.00-0.02); Immature Granulocytes % (auto) 0.1 %; Lymphocytes # (auto) 1.64 K/uL (1.2-3.4); Lymphocytes % (auto) 24.3 %; Mean Corpuscular Hemoglobin 32.2 pg (25-34); Mean Corpuscular Volume 91.9 fL (80-100); Monocytes # (auto) 0.68 K/uL (0.11-0.59); Monocytes % (auto) 10.1 %; Neutrophils # (auto) 4.38 K/uL (1.4-6.5); Neutrophils % (auto) 64.8 %; Platelet Count 165 K/uL (130-400); RDW Coefficient of Variation 13.3 % (11.5-14.5); RDW Standard Deviation 44.7 fL (36.4-46.3); Red Blood Count 4.47 M/uL (4.7-6.1); White Blood Count 6.76 K/uL (4.8-10.8)
[2021-01-15 03:37] LABS: Blood Urea Nitrogen 15 mg/dl (7-18); Calcium 8.3 mg/dl (8.5-10.1); Carbon Dioxide 29 mmol/L (21-32); Chloride 109 mmol/L (98-107); Cholesterol 109 mg/dl (0-200); Creatinine Clr Calc Pharmacy 69.8 ml/min; Est GFR (African American) 83.1 ml/min; Est GFR (Non-African American) 71.7 ml/min; Glucose 88 mg/dl (70-99); Sodium 142 mmol/L (136-145)
[2021-01-15 03:42] LABS: Chol HDL Ratio 3; HDL Cholesterol 33 mg/dl; LDL Cholesterol Calculated 58 mg/dl; Triglycerides 89 mg/dl (0-150); Troponin I < 0.015 ng/ml (0-0.045); VLDL Cholesterol 18 mg/dl
[2021-01-15 07:23] LABS: Estimated Average Glucose 137 mg/dl; Hemoglobin A1C 6.4 % (4.5-5.6)
[2021-01-15] MEDS ORDERED: METOPROLOL SUCC 25MG EXT REL TAB PO SCH (09:00)
[2021-01-15] MEDS ORDERED: ROSUVASTATIN CALCIUM 20 MG TAB PO SCH (09:00)
[2021-01-15] MEDS ORDERED: ASPIRIN 81 MG ECTAB PO SCH (09:00)
[2021-01-15] MEDS ORDERED: LEVOTHYROXINE SODIUM 75 MCG TABLET PO SCH (09:00)
[2021-01-15] MEDS ORDERED: FLUoxetine HCL 20 MG CAP PO SCH (09:00)
[2021-01-15] MEDS ORDERED: lisinopril 2.5 MG TAB PO SCH (09:00)
[2021-01-15] MEDS ORDERED: ATROPINE SULFATE 0.1 MG/ML 10ML SYR IV ONE (09:30)
[2021-01-15] MEDS ORDERED: DOBUTamine HCL 12.5 MG/ML 20 ML VIAL IV ONE (09:30)
[2021-01-15] MEDS ORDERED: METOPROLOL TARTRATE 1 MG/ML VIAL IV ONE (09:30)
--- NOTE | 2021-01-15 14:15 | XCELERA ---
[id number]
--- NOTE | 2021-01-15 19:00 | Discharge Summary ---
Date of Service January 15, 2021 Admission HPI Per Admitting Provider This is a 75-year-old male with past medical history CAD status post [place], stent x2 that presents today complaining of chest pain. Patient is a decent historian. Patient tells me that he was at the eye doctor earlier today getting a routine exam. Right after his eyes were dilated he started to have epigastric pain. This felt like more of a pressure without radiation. It was accompanied by diaphoresis. Patient was sent directly from the fuel agent to the ER for further evaluation. Patient tells me the pain persisted 1-2 hours and then resolved. I he had been given nitro and an aspirin which he feels did not affect the pain. He was then given Maalox which he feels significantly contributed. He denied any belching or abdominal pain with this. He denied any shortness of breath as well. During work-up in the ER, patient has had no further issues. He does have a mildly elevated blood pressure with a systolic in the 150s. Patient was debating whether to sign out AGAINST MEDICAL ADVICE but he decided to stay for evaluation here. So far work-up is been negative with the first set of troponins being nondetectable. Principal Diagnosis Chest pain, likely GERD Discharge Exam Constitutional WD/WN, vitals as above Eyes EOM intact bilaterally; no conjunctival abnormality ENMT external ear and nose normal, oropharynx normal Neck trachea midline, no thyromegaly normal visual inspection Respiratory normal respiratory effort, lungs clear to auscultation no respiratory distress Cardiovascular RRR, no murmur, no edema Gastrointestinal (Abdomen) Inspection/Auscultation: abdomen normal to inspection; abdomen not distended Musculoskeletal no cyanosis or clubbing, extremities motor strength 5/5 Skin no rashes, warm and dry Neurologic moves all extremities and awake Psychiatric Orientation: alert, oriented to person and cooperative Discharge Data Allergies Allergy/AdvReac Type Severity Reaction Status Date / Time No Known Allergies Allergy Verified 01/14/21 15:05 Consultations 01/14/21 16:07 ED Decision to Admit Stat Hospital Course (1) Chest pain: Troponins negative. Improved with Mylanta. - Stress test negative on 01/15. - Discharged on PPI and Tums/Mylanta PRN. - Follow up with PCP (2) CAD (coronary artery disease): Continue medications as per outpatient including low-dose aspirin, statin, lisinopril, metoprolol (3) Hypertension: Continue medications as noted above Blood pressure remains elevated, may need adjustment (4) Hypothyroidism: Levothyroxine 75 mcg daily Check TSH Total Time Total Time Spent Total Time Spent (In Minutes): 35 Discharge Plan Discharge Items Patient Disposition: Home - Self-Care Reason For Visit: CHEST PAIN Discharge Diagnosis: Non-cardiac chest pain Condition on Discharge: Good Activity: Resume your previous activity Non-emergency contact: Primary Care Provider and Fire Controlman Call non-emergency contact if: your symptoms worsen Follow-up/Referrals: Humphrey Eubanks MD [Primary Care Provider] - 01/21/21 11:30 am Diet: Heart Healthy Addtl Attending Provider Instructions: Mr. Henderson, You were admitted to the hospital with chest pain. Due to your prior heart attack, we wanted to treat this very seriously, and we admitted you to the hospital. We checked troponins which are a lab test that checks for heart damage. These were all negative or normal, which is great. This means you did not have a heart attack! Great news! We also did a stress test that was normal which also tells us that your risk of heart attack is hopefully very low. Mylanta seemed to help with your chest pain, so this may have been related to some heart burn (also called GERD). Please take the medication that we prescribe, and if the pain comes back, you can try some Mylanta or Tums for it. If the pain comes back on a regular basis, please speak with your PCP and or tree thinner to help figure out next steps. Pending Studies at Discharge: No Stand-Alone Forms: [facility] [employer], Smoking Cessation Medications and DC Order Prescriptions: New pantoprazole 40 mg tablet,delayed release (DR/EC) 40 mg PO HS 28 Days Qty: 28 RF: 0 calcium carbonate [Tums] 200 mg calcium (500 mg) tablet,chewable 200 mg PO TID PRN (Reason: dyspepsia) Qty: 30 RF: 0 Continued rosuvastatin 40 mg tablet 40 mg PO DAILY Qty: 30 RF: 6 fluoxetine 20 mg Capsule 20 mg PO QAM RF: 0 metoprolol succinate 50 mg tablet extended release 24 hr 25 mg PO QAM RF: 0 lisinopril 2.5 mg tablet 2.5 mg PO QAM RF: 0 aspirin [Aspirin Low Dose] 81 mg Tablet,Delayed Release (Dr/Ec) 81 mg PO QAM RF: 0 levothyroxine 75 mcg tablet 75 mcg PO QAM RF: 0 atorvastatin 80 mg tablet 80 mg PO DAILY RF: 0 Discharge Orders: Discharge Order (Routine); Ordered 01/15/21 Ordered By: Duke Crockett Admission Data Admit Date/Time: 01/14/21 19:00 Attending Provider: Duke Crockett Admit Provider: Omar Alfred Primary Care Provider: Humphrey Eubanks Other Providers: Duke Crockett Other Interventions: Discharge Summary Assessment (RN) Last Done: 01/15/21 14:21 Coding Level of Care Code 88293 OBS Care - Discharge Diagnoses Chest pain R07.9 CAD (coronary artery disease) I25.10 Hypertension I10 Hypothyroidism E03.9
--- NOTE | 2021-01-17 05:30 | Electrocardiogram Report ---
Test Reason : Blood Pressure : / mmHG Vent. Rate : 053 BPM Atrial Rate : 053 BPM P-R Int : 114 ms QRS Dur : 098 ms QT Int : 470 ms P-R-T Axes : -07 050 073 degrees QTc Int : 441 ms Sinus bradycardia Otherwise normal ECG When compared with ECG of 13-JAN-2019 17:32, No significant change was found Confirmed by Milton Olvera ([id number]) on 01/17/2021 5:30:11 AM Referred By: REFERRED SELF Confirmed By:Milton Olvera
--- NOTE | 2021-01-17 05:37 | Electrocardiogram Report ---
Test Reason : Blood Pressure : / mmHG Vent. Rate : 053 BPM Atrial Rate : 053 BPM P-R Int : 148 ms QRS Dur : 098 ms QT Int : 450 ms P-R-T Axes : 050 038 085 degrees QTc Int : 422 ms Sinus bradycardia Otherwise normal ECG When compared with ECG of 14-JAN-2021 12:18, No significant change was found Confirmed by Milton Olvera ([id number]) on 01/17/2021 5:37:50 AM Referred By: REFERRED SELF Confirmed By:Milton Olvera
--- NOTE | 2021-01-17 06:09 | Electrocardiogram Report ---
Test Reason : Blood Pressure : / mmHG Vent. Rate : 058 BPM Atrial Rate : 058 BPM P-R Int : 114 ms QRS Dur : 094 ms QT Int : 444 ms P-R-T Axes : 021 044 069 degrees QTc Int : 435 ms Sinus bradycardia Otherwise normal ECG When compared with ECG of 14-JAN-2021 14:39, No significant change was found Confirmed by Milton Olvera ([id number]) on 01/17/2021 6:09:03 AM Referred By: REFERRED SELF Confirmed By:Milton Olvera
== END 2021-01-15 14:42 | disposition home or self-care (01) ==
LOC: 2S 12:12 → ED 12:12 → SUATTDRO 19:00 → 2S 19:55

== ENCOUNTER 2023-10-01 17:12 | Observation (INO) ==
--- NOTE | 2023-10-01 17:19 | ED Triage Note ---
Date of Service October 01, 2023 Provider in Triage Author: Farrah Dougherty History of Present Illness This patient was briefly evaluated while in triage. An abbreviated physical exam was performed. This patient is a 78-year-old Male who presents to the ED for evaluation of epigastric pain with pain now in lower abdomen. Pt denies chest pain, shob, nausea or vomiting. Physical Exam Initial orders for labs and / or imaging were placed and patient was placed in the waiting area until a bed is available. Please see further documentation for the full ED course.
[2023-10-01 20:31] LABS: Appearance Urine Clear (Clear); Bacteria Urine Automated None Seen (None Seen); Bilirubin Urine Negative (Negative); Blood Urine 1+ (Negative); Color Urine Dark Yellow; Epithelial Cell Urine Auto 0-2 /hpf (0-2); Glucose Urine UA Negative (Negative); Ketones Urine Trace (Negative); Leukocyte Esterase Urine Negative (Negative); Nitrite Urine Negative (Negative); Protein Urine 2+ (Negative); Specific Gravity Urine 1.025 (1.000-1.030); Urobilinogen Urine Negative (Negative); WBC Urine Automated 0-5 /hpf (0-5)
[2023-10-01 20:35] LABS: Basophils # (auto) 0.02 K/uL (0.00-0.20); Basophils % (auto) 0.3 %; Hematocrit (blood only) 48.1 % (42.0-52.0); Hemoglobin 16.5 g/dl (14.0-18.0); Immature Granulocytes # (auto) 0.03 K/uL (0.01-0.20); Immature Granulocytes % (auto) 0.4 %; Lymphocytes % (auto) 16.2 %; Mean Corpuscular Hemoglobin 30.2 pg (25.0-34.0); Mean Corpuscular Hgb Conc 34.3 g/dL (32.0-36.0); Mean Corpuscular Volume 87.9 fL (80.0-100.0); Mean Platelet Volume 10.2 fL (9.4-12.4); Monocytes # (auto) 0.54 K/uL (0.11-0.59); Neutrophils # (auto) 5.08 K/uL (1.40-6.50); Neutrophils % (auto) 75.1 %; Platelet Count 116 K/uL (130-400); RDW Coefficient of Variation 13.3 % (11.5-14.5); RDW Standard Deviation 43.2 fL (36.4-46.3); Red Blood Count 5.47 M/uL (4.70-6.10); White Blood Count 6.77 K/ul (4.8-10.8)
[2023-10-01 20:41] LABS: Albumin Globulin Ratio 1.3 (0.9-2); Albumin Level 4.7 gm/dl (3.4-5.0); BUN Creatinine Ratio 19.6 (10-20); Bilirubin,Total 1.6 mg/dl (0.2-1.0); Calcium 9.2 mg/dl (8.6-10.3); Creatinine Clr Calc Pharmacy 62.9 ml/min; Est GFR (African American) 77.7 ml/min; Est GFR (Non-African American) 67.1 ml/min; Globulin 3.6 gm/dl (2.5-4.0); Total Protein 8.3 gm/dl (6.0-8.3)
[2023-10-01] MEDS: OPTIRAY 320 100ml IV ONE (20:54)
--- NOTE | 2023-10-01 21:27 | CT Scan Report ---
Exam(s): CT ABDOMEN + PELVIS With Contrast IV Amt: OPTIRAY 320 92ML EXAM: CT Abdomen and Pelvis With Intravenous Contrast CLINICAL HISTORY: Reason for exam: epiastric pain with diffuse abdominal pain. TECHNIQUE: Axial computed tomography images of the abdomen and pelvis with intravenous contrast. CTDI is 27.65 mGy and DLP is 1445.61 mGy-cm. Automated exposure control was utilized for the study. A dose lowering technique was utilized adhering to the principles of ALARA. CONTRAST: Patient received OPTIRAY 320 92ML of IV contrast COMPARISON: No relevant prior studies available. FINDINGS: Lung bases: Unremarkable. No mass. No consolidation. ABDOMEN: Liver: Unremarkable. No mass. Gallbladder and bile ducts: Unremarkable. No calcified stones. No ductal dilation. Pancreas: Unremarkable. No mass. No ductal dilation. Spleen: Unremarkable. No splenomegaly. Adrenals: Unremarkable. No mass. Kidneys and ureters: Multiple bilateral renal cysts. No hydronephrosis. Stomach and bowel: Unremarkable. No obstruction. No mucosal thickening. PELVIS: Appendix: No findings to suggest acute appendicitis. Bladder: Unremarkable. No mass. Reproductive: Vasectomy clips. ABDOMEN and PELVIS: Intraperitoneal space: Unremarkable. No free air. No significant fluid collection. Bones/joints: No acute fracture. No dislocation. Soft tissues: Unremarkable. Vasculature: Unremarkable. No abdominal aortic aneurysm. Lymph nodes: Unremarkable. No enlarged lymph nodes. IMPRESSION: No acute findings in the abdomen or pelvis. Electronically signed by: Papi Galindo MD 10/01/23 21:26 PM
--- NOTE | 2023-10-01 21:37 | Emergency Department Note ---
Impression & Plan Abdominal pain, Transaminitis, Elevated bilirubin, Nausea and vomiting ED Provider Note NAME: TAYLA IRAHETA AGE: 78 SEX: M : 1945 ARRIVES VIA: Walk-In INFORMANT: Patient ED PROVIDER(S): Silverio Perez DO CHIEF COMPLAINT: abdominal pain HPI: Patient is a 78-year-old male who presents to the ER with past medical history of hypertension, diabetes, hyperlipidemia, CAD for epigastric abdominal pain which started last night. Associate with nausea and vomiting. Pain radiated to the lower abdomen and now radiates across the belly. He is having dry heaving. Denies any dysuria, urgency, or frequency. No other exacerbating or remitting factors. He notes the dry heaves have improved significantly. ADDITIONAL HISTORY OBTAINED: Per HPI Chronic Medical/Social Conditions Affecting Care: Per HPI PAST MEDICAL HISTORY:See Below PAST SURGICAL HISTORY:See Below FAMILY HISTORY:See Below SOCIAL HISTORY:See Below HOME MEDICATIONS:See Below ALLERGIES:See Below VITALS:See Below PHYSICAL EXAMINATION: GENERAL: Sitting up in bed, alert, well appearing, well nourished, no distress, non-toxic EYE EXAM: normal conjunctiva. OROPHARYNX: mucous membranes are moist NECK: supple, no nuchal rigidity, no adenopathy, non-tender LUNGS: Clear to auscultation. Normal chest wall mechanics HEART: no murmurs, S1 normal and S2 normal ABDOMEN: abdomen soft, minimal tenderness to the mid abdomen normo-active bowel sounds, no masses, no rebound or guarding. UPPER EXTREMITIES: upper extremities are grossly normal. LOWER EXTREMITIES: No pitting edema. NEURO EXAM: Normal sensorium, cranial nerves II-XII grossly intact, normal speech, no gross weakness of arms, no gross weakness of legs. MEDICAL DECISION MAKING: Patient is a 78-year-old male who presents ER for above-stated complaint. IV was established blood work was obtained. Labs show no significant leukocytosis or anemia. Mild thrombocytopenia at 116. BMP along with LFTs shows a mild transaminitis at 150 AST and ALT of 135. T. bili slightly up at 1.6. Troponin was negative. Lipase negative. UA was clean. CT abdomen pelvis is unremarkable. He was given IV fluids in combination with Zofran. With the transaminitis and slightly elevated bilirubin I did discuss case with the hospitalist Dr. Mekhi Vail for further evaluation management treatment. He requested I speak with general surgery and I spoke with Dr. Dai and he was agreeable for admission to the hospital service. Did recommend a HIDA scan. Consults/Care Managements Discussions: Per MDM Triage Nursing notes reviewed. Limited review of prior medical records performed Vital Signs: reviewed and remarkable for no significant abnormalities Differential diagnosis: Differential diagnoses includes but is not limited to gastritis, peptic ulcer disease, GERD, gallbladder disease, pancreatitis, small bowel obstruction, appendicitis, diverticulitis, hernia, urinary tract infection, torsion, perforation, trauma, infectious. ER treatment provided: See below Diagnostics interpreted by me include EKG and cardiac monitoring as listed below: -Cardiac Monitoring: An order was placed for continuous cardiac monitoring. The monitor shows a rate of 80 with sinus rhythm. -ECG: Sinus rhythm rate 71 Normal axis No PVCs QTc 443 -Laboratory studies:Interpreted by me as stated above in MDM and shown below. Imaging studies: Xrays: As interpreted by me:none CTs show: CT abdomen pelvis per my preliminary interpretation showed no obvious bowel obstruction CT abdomen pelvis per radiology showed no acute pathology including no stones in the CBD of 7 mm Procedures:none Critical Care: None Past Med/Surg History Medical History (Updated 10/02/23 @ 00:39 by Silverio Perez DO) Lumbar facet joint syndrome DISH (diffuse idiopathic skeletal hyperostosis) Type 2 diabetes mellitus with obesity Arthritis GERD (gastroesophageal reflux disease) History of COVID-31 JANUARY 2022>RESOLVED History of kidney stones Type 2 diabetes mellitus PT DENIES Depression Hypothyroidism Hypertension Hyperlipidemia STEMI (ST elevation myocardial infarction) 2013>FOLLOWED BY DR. WOOD Hyperlipidemia Surgical History History of left cataract surgery History of tooth extraction History of heart artery stent 2013>2 STENTS PLACED AT [facility] Status post cystoscopy with ureteral stent placement History of lithotripsy Hx of vasectomy History of colonoscopy History of appendectomy Family History Aunt Breast cancer Cancer Mother Myocardial infarction Brother Prostate cancer Myocardial infarction Other Heart disease No family history of adverse response to anesthesia Denies family history of Ovarian cancer Colorectal cancer Social History Smoking Status: Never smoker Second Hand Exposure: No; Do You Dip or Chew Tobacco: No; Hx Alcohol Use: Yes Alcohol type: beer Hx Substance Use: No Preferred Language: Citizen Of [place] Communication Ability: Effective Tissue Recovery Technician Required: No Beliefs That Will Affect Care: None marital status: Current Living Situation: Spouse Other Information That Helps Us Care for You: No Feels Safe at Home: Yes Safety Concerns: Feels Safe At This Time Seatbelt Use: sometimes Assistive Devices: Denture - Upper, Denture - Lower and Glasses Allergies Allergies Allergy/AdvReac Type Severity Reaction Status Date / Time No Known Allergies Allergy Verified 10/01/23 23:03 Home Meds Home Medications Medication Instructions Recorded Confirmed aspirin 81 mg tablet,delayed 81 mg PO QAM 11/07/18 10/01/23 release (Trung Low Dose Aspirin) metformin 500 mg tablet,extended 250 mg PO DAILY 02/19/23 10/01/23 release 24 hr clotrimazole-betamethasone 1 1 applic topical BID PRN flare ups 10/01/23 10/01/23 %-0.05 % topical cream Previous Rx's Medication Instructions Recorded calcium carbonate (Tums) 200 mg PO TID PRN dyspepsia #30 01/15/21 tabs ezetimibe 10 mg tablet 10 mg PO HS #90 tabs 01/12/23 rosuvastatin 40 mg tablet 40 mg PO HS #90 tabs 01/28/23 fluoxetine 20 mg capsule 20 mg PO HS #90 caps 03/02/23 levothyroxine 75 mcg tablet 75 mcg PO QAM #90 tabs 03/09/23 lisinopril 2.5 mg tablet 2.5 mg PO QAM #90 tabs 05/20/23 celecoxib 200 mg capsule (Celebrex) 200 mg PO DAILY #30 caps 08/28/23 Results & Data (ED) Vital Signs Vital Signs - 24 hr 10/01/23 17:17 10/01/23 20:04 10/01/23 21:28 Temperature 36.7 C Temperature Source Temporal Artery Scan Pulse Rate 77 75 Pulse Rate [Finger] 65 Pulse Rate from SpO2 Sensor Respiratory Rate 18 20 Respiratory Effort / Characteristics Non-Labored Spontaneous Non-Labored Respiratory Depth Normal Normal Respiratory Pattern Regular Blood Pressure 153/71 H Blood Pressure [Right Arm] 138/85 Blood Pressure Mean 98 Blood Pressure Mean [Right Arm] 102 Blood Pressure Position Sitting Pulse Oximetry 96 96 Oxygen Delivery Method Room Air Room Air Sepsis Recent Fever Within 48 Hours No Sepsis New/Unexplained Change in Mental Status No Sepsis Action Taken by Nursing No Action Required 10/01/23 21:30 10/01/23 22:00 Temperature Temperature Source Pulse Rate 80 73 Pulse Rate [Finger] Pulse Rate from SpO2 Sensor 79 72 Respiratory Rate 20 16 Respiratory Effort / Characteristics Respiratory Depth Respiratory Pattern Blood Pressure 178/107 H 154/96 H Blood Pressure [Right Arm] Blood Pressure Mean 130 115 Blood Pressure Mean [Right Arm] Blood Pressure Position Pulse Oximetry 97 96 Oxygen Delivery Method Room Air Room Air Sepsis Recent Fever Within 48 Hours Sepsis New/Unexplained Change in Mental Status Sepsis Action Taken by Nursing Laboratory Data 10/01/23 19:53 10/01/23 19:53 Lab Results 10/01/23 10/01/23 Range/Units 19:52 19:53 WBC 6.77 (4.8-10.8) K/ul RBC 5.47 (4.70-6.10) M/uL Hgb 16.5 (14.0-18.0) g/dl Hct 48.1 (42.0-52.0) % MCV 87.9 (80.0-100.0) fL MCH 30.2 (25.0-34.0) pg MCHC 34.3 (32.0-36.0) g/dL RDW Std Deviation 43.2 (36.4-46.3) fL RDW Coeff of Cherie 13.3 (11.5-14.5) % Plt Count 116 L (130-400) K/uL MPV 10.2 (9.4-12.4) fL Immature Gran % (Auto) 0.4 % Neut % (Auto) 75.1 % Lymph % (Auto) 16.2 % Rawlins % (Auto) 8.0 % Eos % (Auto) 0.0 % Baso % (Auto) 0.3 % Neut # (Auto) 5.08 (1.40-6.50) K/uL Lymph # (Auto) 1.10 L (1.20-3.40) K/uL Rawlins # (Auto) 0.54 (0.11-0.59) K/uL Eos # (Auto) 0.00 (0.00-0.50) K/uL Baso # (Auto) 0.02 (0.00-0.20) K/uL Immature Gran # (Auto) 0.03 (0.01-0.20) K/uL Sodium 135 L (136-145) mmol/L Potassium 4.0 (3.5-5.1) mmol/L Chloride 101 (98-107) mmol/L Carbon Dioxide 25 (21-32) mmol/L Anion Gap 9 (3-11) BUN 21 (6-23) mg/dl Creatinine 1.07 (0.6-1.4) mg/dl Est Cr Clr Drug Dosing 62.9 ml/min Est GFR ( Amer) 77.7 ml/min Est GFR (Non-Af Amer) 67.1 ml/min BUN/Creatinine Ratio 19.6 (10-20) Glucose 117 H (70-99(Fasting)) mg/dl Calcium 9.2 (8.6-10.3) mg/dl Total Bilirubin 1.6 H (0.2-1.0) mg/dl AST 96 H (13-39) U/L ALT 135 H (7-52) U/L Alkaline Phosphatase 128 H (34-104) U/L Troponin I High Sens 11.0 (0-20) pg/ml Total Protein 8.3 (6.0-8.3) gm/dl Albumin 4.7 (3.4-5.0) gm/dl Globulin 3.6 (2.5-4.0) gm/dl Albumin/Globulin Ratio 1.3 (0.9-2) Lipase 41 (11-82) U/L Urine Color Dark Yellow Urine Appearance Clear (Clear) Urine pH 6.0 (4.5-7.5) Ur Specific Dexter 1.025 (1.000-1.030) Urine Protein 2+ H (Negative) Urine Glucose (UA) Negative (Negative) Urine Ketones Trace H (Negative) Urine Blood 1+ H (Negative) Urine Nitrite Negative (Negative) Urine Bilirubin Negative (Negative) Urine Urobilinogen Negative (Negative) Ur Leukocyte Esterase Negative (Negative) Urine WBC (Auto) 0-5 (0-5) /hpf Urine RBC (Auto) 3-5 H (0-2) /hpf U Hyaline Cast (Auto) 3-5 H (0-2) /lpf U Epithel Cells (Auto) 0-2 (0-2) /hpf Urine Bacteria (Auto) None Seen (None Seen) Administered Medications Lactated Ringer's (Lr) 1,000 mls @ 125 mls/hr IV .Q8H TOBY Stop: 11/01/23 00:00 Last Admin: 10/02/23 00:20 Dose: 125 mls/hr Documented By: RICHARD Melatonin (Melatonin 3 Mg Tab) 3 mg PO HS PRN PRN Reason: Insomnia Stop: 11/01/23 00:00 Last Admin: 10/02/23 00:22 Dose: 3 mg Documented By: EM Discontinued Medications Sodium Chloride (Nss) 1,000 mls @ 999 mls/hr IV .Q1H1M ONE Stop: 10/01/23 22:39 Last Infusion: 10/02/23 00:33 Dose: Infused Documented By: Admin: 10/01/23 22:31 Dose: 999 mls/hr Documented By: [facility] [place] Pantoprazole Sodium 40 mg/ (Syringe) 10 mls @ 5 mls/min IV NOW ONE Stop: 10/01/23 23:16 Last Admin: 10/02/23 00:21 Dose: 5 mls/min Documented By: RICHARD Acetaminophen (Ofirmev) 1,000 mg in 100 mls @ 400 mls/hr IV NOW STA Stop: 10/01/23 23:18 Last Admin: 10/02/23 00:21 Dose: 400 mls/hr Documented By: RICHARD Ioversol (Optiray 320 100ml) 92 ml IV ONCE ONE Stop: 10/01/23 20:55 Last Admin: 10/01/23 20:54 Dose: 92 ml Documented By: DIAMOND Ondansetron HCl (Ondansetron Inj 2 Mg/Ml 2 Ml Vial) 4 mg IV NOW STA Stop: 10/01/23 21:40 Last Admin: 10/01/23 22:31 Dose: 4 mg Documented By: [facility] [place] Imaging Data Radiologist's Impression: Abdomen/Pelvis CT 10/01/23 17:20 Exam(s): CT ABDOMEN + PELVIS With Contrast IV Amt: OPTIRAY 320 92ML EXAM: CT Abdomen and Pelvis With Intravenous Contrast CLINICAL HISTORY: Reason for exam: epiastric pain with diffuse abdominal pain. TECHNIQUE: Axial computed tomography images of the abdomen and pelvis with intravenous contrast. CTDI is 27.65 mGy and DLP is 1445.61 mGy-cm. Automated exposure control was utilized for the study. A dose lowering technique was utilized adhering to the principles of ALARA. CONTRAST: Patient received OPTIRAY 320 92ML of IV contrast COMPARISON: No relevant prior studies available. FINDINGS: Lung bases: Unremarkable. No mass. No consolidation. ABDOMEN: Liver: Unremarkable. No mass. Gallbladder and bile ducts: Unremarkable. No calcified stones. No ductal dilation. Pancreas: Unremarkable. No mass. No ductal dilation. Spleen: Unremarkable. No splenomegaly. Adrenals: Unremarkable. No mass. Kidneys and ureters: Multiple bilateral renal cysts. No hydronephrosis. Stomach and bowel: Unremarkable. No obstruction. No mucosal thickening. PELVIS: Appendix: No findings to suggest acute appendicitis. Bladder: Unremarkable. No mass. Reproductive: Vasectomy clips. ABDOMEN and PELVIS: Intraperitoneal space: Unremarkable. No free air. No significant fluid collection. Bones/joints: No acute fracture. No dislocation. Soft tissues: Unremarkable. Vasculature: Unremarkable. No abdominal aortic aneurysm. Lymph nodes: Unremarkable. No enlarged lymph nodes. IMPRESSION: No acute findings in the abdomen or pelvis. Electronically signed by: Papi Galindo MD 10/01/23 21:26 PM Discharge Plan Visit Data Chief Complaint: Abdominal Pain Stated Complaint: ABD PAIN ED Provider: Silverio Perez Discharge Problem: Abdominal pain, Transaminitis, Elevated bilirubin, Nausea and vomiting Discharge Problem: Abdominal pain Qualifiers: Abdominal location: unspecified location Qualified Code(s): R10.9 - Unspecified abdominal pain Nausea and vomiting Qualifiers: Vomiting type: unspecified Qualified Code(s): R11.2 - Nausea with vomiting, unspecified
[2023-10-01] MEDS: SODIUM CHLORIDE 0.9% 1,000 ML IV ONE (22:31)
[2023-10-01] MEDS: ONDANSETRON INJ 2 MG/ML 2 ML VIAL IV STA (22:31)
--- NOTE | 2023-10-01 22:46 | History & Physical Report ---
Date of Service October 01, 2023 Assessment & Plan (1) Abdominal pain: Plan: Patient with documented history of cholelithiasis and previously elevated transaminases/bilirubin. High likelihood of gallbladder pathology. Dr. Perez spoke with Dr. Dai who recommended a HIDA scan. Given Zofran and 1L NS in the ED. Hold off on abx for now as CT without signs of inflammation. Low threshold to start abx if patient clinically deteriorating. Given Tylenol IV x 1, can repeat for pain control. Would avoid NSAIDs for now. gen surg consult - appreciate recs HIDA ordered started on GI ppx with pantoprazole 40 mg BID Zofran PRN AM CMP and CBC (2) Nausea: Plan: EKG without QTC prolongation. Zofran 4 mg IV Q6H PRN for nausea. (3) STEMI (ST elevation myocardial infarction): Plan: Hold ASA for now as there is concern for gastritis. (4) S/P coronary artery stent placement: Plan: See above (5) Transaminitis: Plan: Trend (6) Elevated bilirubin: Plan: Continue to monitor (7) Hyperlipidemia: Plan: Hold statin therapy in setting of transaminitis. (8) Hypertension: Plan: Can resume home medications once med rec is completed (9) Hypothyroidism: Plan: Can resume home medications once med rec is completed (10) Type 2 diabetes mellitus with obesity: Plan: Last HbA1c 08/2023 - 6.5%. On low dose metformin. Hold while inpatient. Will hold off on insulin for now. Continue to monitor. Plan Code status: full DVT ppx: recommend ambulation/SCDs, if anticipating extended hospital stay would start Lovenox FENGI: NPO for HIDA scan, heart healthy carb consistent once able to have diet, mIVF @ 125 mL/hr Dispo: MedSurg History of Present Illness Chief Complaint: abdominal pain Primary Care Provider: Estelle Gee MD 78 y/o male with a PMHx of impaired fasting glucose, hypothyroidism, HTN, HLD, and dyspepsia presents with abdominal pain. Patient with epigastric pain that started yesterday evening with associated nausea and dry heaving. Pain has traveled around some. Current midline below the level of the umbilicus. Pain described as 3-4/10, dull constant. No alleviating/exacerbating symptoms. No fevers or chills. No CP or SOB. No change in bowel habits. No dysuria or hematuria. No hematochezia. Did have a bowel movement yesterday. Nausea improved with zofran. Patient is feeling hungry. No smoking history. Drinks about 1 alcoholic beverage weekly. Denies any NSAID use or reflux symptoms. Of note patient is on Celebrex and ASA daily. Does also have TUMs on his med list, so there may be a component of dyspepsia. Allergies Allergy/AdvReac Type Severity Reaction Status Date / Time No Known Allergies Allergy Verified 10/01/23 23:03 Home Medications Medication Instructions Recorded Confirmed Type aspirin 81 mg tablet,delayed 81 mg PO QAM 11/07/18 10/01/23 History release (Trung Low Dose Aspirin) calcium carbonate (Tums) 200 mg PO TID PRN dyspepsia #30 01/15/21 10/01/23 Rx tabs ezetimibe 10 mg tablet 10 mg PO HS #90 tabs 01/12/23 10/01/23 Rx rosuvastatin 40 mg tablet 40 mg PO HS #90 tabs 01/28/23 10/01/23 Rx metformin 500 mg tablet,extended 250 mg PO DAILY 02/19/23 10/01/23 History release 24 hr fluoxetine 20 mg capsule 20 mg PO HS #90 caps 03/02/23 10/01/23 Rx levothyroxine 75 mcg tablet 75 mcg PO QAM #90 tabs 03/09/23 10/01/23 Rx lisinopril 2.5 mg tablet 2.5 mg PO QAM #90 tabs 05/20/23 10/01/23 Rx celecoxib 200 mg capsule (Celebrex) 200 mg PO DAILY #30 caps 08/28/23 10/01/23 Rx clotrimazole-betamethasone 1 1 applic topical BID PRN flare ups 10/01/23 10/01/23 History %-0.05 % topical cream Past Med/Surg History Medical History Lumbar facet joint syndrome DISH (diffuse idiopathic skeletal hyperostosis) Type 2 diabetes mellitus with obesity Arthritis GERD (gastroesophageal reflux disease) History of COVID-31 JANUARY 2022>RESOLVED History of kidney stones Type 2 diabetes mellitus PT DENIES Depression Hypothyroidism Hypertension Hyperlipidemia STEMI (ST elevation myocardial infarction) 2013>FOLLOWED BY DR. WOOD Hyperlipidemia Surgical History History of left cataract surgery History of tooth extraction History of heart artery stent 2013>2 STENTS PLACED AT [facility] Status post cystoscopy with ureteral stent placement History of lithotripsy Hx of vasectomy History of colonoscopy History of appendectomy Family History Aunt Breast cancer Cancer Mother Myocardial infarction Brother Prostate cancer Myocardial infarction Other Heart disease No family history of adverse response to anesthesia Denies family history of Ovarian cancer Colorectal cancer Social History Smoking Status: Never smoker Second Hand Exposure: No; Do You Dip or Chew Tobacco: No; Hx Alcohol Use: Yes Alcohol type: beer Hx Substance Use: No Preferred Language: [place] Communication Ability: Effective Automatic Tire Tester Required: No Beliefs That Will Affect Care: None marital status: Current Living Situation: Spouse Feels Safe at Home: Yes Seatbelt Use: sometimes Assistive Devices: Glasses Review of Systems 2 Review of Systems: See HPI Physical Exam 2 Physical Exam: Gen: well appearing male patient in NAD HEENT: AT NC MMM Resp: CTAB no wheezing no increased work of breathing CV: RRR no m/r/g clinically well perfused Abd: soft, non-tender, non-distended, negative peritoneal signs, negative Norris's MSK: no obvious deformities Skin: no rashes or bruising Neuro: alert and oriented Psych: appropriate mood and affect Results & Data Results & Data Vital Signs (Past 12 Hours) Vital Signs Temp Pulse Pulse Resp BP BP Pulse Ox 10/01/23 22:00 73 16 154/96 H 96 10/01/23 21:30 80 20 178/107 H 97 10/01/23 21:28 75 10/01/23 20:04 65 20 138/85 96 10/01/23 17:17 36.7 C 77 18 153/71 H 96 O2 Del Method 10/01/23 22:00 Room Air 10/01/23 21:30 Room Air 10/01/23 21:28 10/01/23 20:04 Room Air 10/01/23 17:17 Room Air Laboratory Results 10/01/23 19:53 10/01/23 19:53 Diagnostic Findings Abdomen/Pelvis CT 10/01/23 17:20 FINDINGS: Lung bases: Unremarkable. No mass. No consolidation. ABDOMEN: Liver: Unremarkable. No mass. Gallbladder and bile ducts: Unremarkable. No calcified stones. No ductal dilation. Pancreas: Unremarkable. No mass. No ductal dilation. Spleen: Unremarkable. No splenomegaly. Adrenals: Unremarkable. No mass. Kidneys and ureters: Multiple bilateral renal cysts. No hydronephrosis. Stomach and bowel: Unremarkable. No obstruction. No mucosal thickening. PELVIS: Appendix: No findings to suggest acute appendicitis. Bladder: Unremarkable. No mass. Reproductive: Vasectomy clips. ABDOMEN and PELVIS: Intraperitoneal space: Unremarkable. No free air. No significant fluid collection. Bones/joints: No acute fracture. No dislocation. Soft tissues: Unremarkable. Vasculature: Unremarkable. No abdominal aortic aneurysm. Lymph nodes: Unremarkable. No enlarged lymph nodes. IMPRESSION: No acute findings in the abdomen or pelvis. Supervising Physician Co-Signing Physician Notes Attending addendum: I have physically seen this patient, have supervised the medical residents activities, and agree with the H&P unless as otherwise noted. Assessment and Plan: Abdominal pain/nausea and vomiting- Cholelithiasis and history of abnormal LFTs in the past General surgery consulted and recommends HIDA scan N.p.o. Order HIDA scan Zofran 4 mg IV every 6 hours as needed Pantoprazole 40 mg IV twice daily CAD/hypertension/history of STEMI/history of coronary stent placement- Temporarily hold aspirin Hold Celebrex Continue lisinopril with hold parameters No heart related symptoms Diabetes mellitus- Hold metformin Placed on Accu-Cheks with NovoLog SSI Resident Activity Tracking Resident Involvement: Resident Care Provided Care Provided: Adult Hospital Medicine (1) Abdominal pain Abdominal location: generalized Qualified Code(s): R10.84 - Generalized abdominal pain
[2023-10-02] MEDS ORDERED: ACETAMINOPHEN 1,000 MG/100 ML VIAL IV PRN
[2023-10-02] MEDS ORDERED: POLYETHYLENE (MIRALAX) 17 GM PACK PO PRN
[2023-10-02] MEDS ORDERED: ONDANSETRON INJ 2 MG/ML 2 ML VIAL IV PRN
[2023-10-02] MEDS: LACTATED RINGER'S 1,000 ML IV SCH (00:20)
[2023-10-02] MEDS: ACETAMINOPHEN 1,000 MG/100 ML VIAL IV STA (00:21)
[2023-10-02] MEDS: PANTOprazole 40 MG in SYRINGE 0 ML IV ONE (00:21)
[2023-10-02] MEDS: MELATONIN 3 MG TAB PO PRN (00:22)
--- NOTE | 2023-10-02 07:33 | Surgery Consultation ---
Date of Consultation October 02, 2023 Assessment & Plan (1) Abdominal pain: This is a 78yM with a PMH of HTN, HLD, DM2, CAD s/p 2 stents who presents to the [facility] ED on 10/01/23 with complaints of midline lower abdominal pain that started 2 nights ago, associated with nausea. Due to his pain he presented to the ER for further evaluation. A CT a/p was performed that revealed no acute findings in the abdomen or pelvis, no suggestion of gallstones or cholecystitis. Today's blood work reveals WBC 6, Hbg 14, Cr 0.9. LFTs are elevated but downtrended from yesterday-Tb 1.3(1.6), AST 69 (96), ALT 101 (135), AlkP 105 (128). Vital signs are stable and patient is afebrile. On examination abdomen is soft with discomfo rt in the infraumbilical region. He has no tenderness or discomfort elicited in the epigastric or RUQ regions. Examination and imaging at this time not consistent with acute cholecystitis. A HIDA scan has been ordered for further evaluation which will be performed this afternoon. Discussed with radiology there is no need to add on ejection fraction to this. Can continue to trend LFTs, if show any rise may consider an MRCP. May also consider a RUQ US if indicated pending HIDA scan results. No plans for surgical intervention warranted at this time. We will await results of HIDA scan and recommend rechecking LFTs raegan AM to ensure they are downtrending. Of note he does have a prior RUQ US performed 2 years ago that shows gallstones without evidence of cholecystitis at that time. (2) Elevated bilirubin: Supervising Physician Co-Signing Physician Notes pnt S&E, labs and imaging reviewed, agree w/ above. Admitted w/ lower abd pain, mild LFT elevation, surgery consulted to discuss possible GB etiology. Pain not postprandial, focused in lower abd/bilateral pelvis. afvss, nad, aaox3. abd soft, Minimally ttp in lower abd, no guarding. NO RUQ tenderness, neg watson's sign. CT personally reviewed, agree w/ no significant findings. Specifically no cholecystitis. HIDA negative. No obvious biliary etiology. If further concern could consider RUQUS, as last one was 2021. History of Present Illness Attending Physician: Rodolfo Jefferson History of Present Illness This is a 78yM with a PMH of HTN, HLD, DM2, CAD s/p 2 stents who presents to the [facility] ED on 10/01/23 with complaints of abdominal pain. Patient states his pain started 2 nights ago and is mostly located in the midline lower abdomen. He reports it's a constant nagging feeling, rating it up to a 7/10 in severity. He had some nausea but no emesis with this. Due to his pain he presented to the ER for further evaluation. A CT a/p was performed that revealed no acute findings in the abdomen or pelvis, no suggestion of gallstones or cholecystitis. He states he had pain similar to this about 5 years ago, was worked up for gallbladder etiology which was negative. He denies any issues with foods, in particular no worsening pain with fatty/greasy/spicy things. No fevers/chills, CP/SOB, no new back pain, or change in bowel habits. No urinary symptoms. Prior surgical history includes an appendectomy when he was 13 or 14 years old. Having some pain still, but improved from admission. Allergies Allergy/AdvReac Type Severity Reaction Status Date / Time No Known Allergies Allergy Verified 10/01/23 23:03 Home Medications Medication Instructions Recorded Confirmed Type aspirin 81 mg tablet,delayed 81 mg PO QAM 11/07/18 10/01/23 History release (Trung Low Dose Aspirin) calcium carbonate (Tums) 200 mg PO TID PRN dyspepsia #30 01/15/21 10/01/23 Rx tabs ezetimibe 10 mg tablet 10 mg PO HS #90 tabs 01/12/23 10/01/23 Rx rosuvastatin 40 mg tablet 40 mg PO HS #90 tabs 01/28/23 10/01/23 Rx metformin 500 mg tablet,extended 250 mg PO DAILY 02/19/23 10/01/23 History release 24 hr fluoxetine 20 mg capsule 20 mg PO HS #90 caps 03/02/23 10/01/23 Rx levothyroxine 75 mcg tablet 75 mcg PO QAM #90 tabs 03/09/23 10/01/23 Rx lisinopril 2.5 mg tablet 2.5 mg PO QAM #90 tabs 05/20/23 10/01/23 Rx celecoxib 200 mg capsule (Celebrex) 200 mg PO DAILY #30 caps 08/28/23 10/01/23 Rx clotrimazole-betamethasone 1 1 applic topical BID PRN flare ups 10/01/23 10/01/23 History %-0.05 % topical cream Patient History Medical History Lumbar facet joint syndrome DISH (diffuse idiopathic skeletal hyperostosis) Type 2 diabetes mellitus with obesity Arthritis GERD (gastroesophageal reflux disease) History of COVID-31 JANUARY 2022>RESOLVED History of kidney stones Type 2 diabetes mellitus PT DENIES Depression Hypothyroidism Hypertension Hyperlipidemia STEMI (ST elevation myocardial infarction) 2013>FOLLOWED BY DR. WOOD Hyperlipidemia Surgical History History of left cataract surgery History of tooth extraction History of heart artery stent 2013>2 STENTS PLACED AT [facility] Status post cystoscopy with ureteral stent placement History of lithotripsy Hx of vasectomy History of colonoscopy History of appendectomy Family History Aunt Breast cancer Cancer Mother Myocardial infarction Brother Prostate cancer Myocardial infarction Other Heart disease No family history of adverse response to anesthesia Denies family history of Ovarian cancer Colorectal cancer Social History Smoking Status: Never smoker Second Hand Exposure: No; Do You Dip or Chew Tobacco: No; Hx Alcohol Use: Yes Alcohol type: beer Hx Substance Use: No Preferred Language: Malay Communication Ability: Effective Change Number Operator Required: No Beliefs That Will Affect Care: None marital status: Current Living Situation: Spouse Other Information That Helps Us Care for You: No Feels Safe at Home: Yes Safety Concerns: Feels Safe At This Time Seatbelt Use: sometimes Assistive Devices: Denture - Upper, Denture - Lower and Glasses Review of Systems Constitutional: no fever and no chills Respiratory: no dyspnea Cardiovascular: no chest pain Gastrointestinal: + abdominal pain (midline lower abdomen ) and + nausea; no vomiting and no change in bowel habits Genitourinary: no problem reported Physical Exam Physical Exam: awake/alert, no distress Constitutional: comfortable Gastrointestinal (Abdomen): Inspection/Auscultation: + abdominal surgical scar; abdomen not distended Percussion/Palpation: + abdomen tender (mild discomfort infraumbilically ) and abdomen soft Results & Data Vital Signs (Past 12 Hours) Vital Signs Temp Pulse Pulse Resp BP BP Pulse Ox 10/02/23 07:28 97.5 F L 72 18 153/84 H 96 10/02/23 00:02 98.1 F 69 18 159/89 H 95 10/01/23 22:00 73 16 154/96 H 96 10/01/23 21:30 80 20 178/107 H 97 10/01/23 21:28 75 10/01/23 20:04 65 20 138/85 96 O2 Del Method 10/02/23 07:28 Room Air 10/02/23 00:02 Room Air 10/01/23 22:00 Room Air 10/01/23 21:30 Room Air 10/01/23 21:28 10/01/23 20:04 Room Air Laboratory Results Laboratory Results - last 24 hr 10/01/23 10/01/23 10/02/23 19:52 19:53 06:27 WBC 6.77 6.83 RBC 5.47 4.75 Hgb 16.5 14.3 Hct 48.1 41.7 L MCV 87.9 87.8 MCH 30.2 30.1 MCHC 34.3 34.3 RDW Std Deviation 43.2 43.5 RDW Coeff of Cherie 13.3 13.5 Plt Count 116 L 107 L MPV 10.2 10.4 Immature Gran % (Auto) 0.4 Neut % (Auto) 75.1 Lymph % (Auto) 16.2 [place] % (Auto) 8.0 Eos % (Auto) 0.0 Baso % (Auto) 0.3 Neut # (Auto) 5.08 Lymph # (Auto) 1.10 L [place] # (Auto) 0.54 Eos # (Auto) 0.00 Baso # (Auto) 0.02 Immature Gran # (Auto) 0.03 Sodium 135 L 134 L Potassium 4.0 4.2 Chloride 101 101 Carbon Dioxide 25 26 Anion Gap 9 7 BUN 21 19 Creatinine 1.07 0.96 Est Cr Clr Drug Dosing 62.9 69.2 Est GFR ( Amer) 77.7 88.6 Est GFR (Non-Af Amer) 67.1 76.5 BUN/Creatinine Ratio 19.6 19.8 Glucose 117 H 113 H Calcium 9.2 8.7 Total Bilirubin 1.6 H 1.3 H AST 96 H 69 H ALT 135 H 101 H Alkaline Phosphatase 128 H 105 H Troponin I High Sens 11.0 Total Protein 8.3 6.9 Albumin 4.7 3.9 Globulin 3.6 3.0 Albumin/Globulin Ratio 1.3 1.3 Lipase 41 Urine Color Dark Yellow Urine Appearance Clear Urine pH 6.0 Ur Specific King 1.025 Urine Protein 2+ H Urine Glucose (UA) Negative Urine Ketones Trace H Urine Blood 1+ H Urine Nitrite Negative Urine Bilirubin Negative Urine Urobilinogen Negative Ur Leukocyte Esterase Negative Urine WBC (Auto) 0-5 Urine RBC (Auto) 3-5 H U Hyaline Cast (Auto) 3-5 H U Epithel Cells (Auto) 0-2 Urine Bacteria (Auto) None Seen Diagnostic Findings NUCLEAR HEPATOBILIARY SCAN CLINICAL HISTORY: Epigastric abdominal pain. COMPARISON STUDY: Abdominal CT dated 10/01/2023. TECHNIQUE: Dynamic images of the liver and anterior abdomen were obtained every 5 minutes for a total of 60 minutes following the IV administration of 5.5 mCi of technetium 99m Mebrofenin. FINDINGS: The hepatobiliary scan shows prompt and homogeneous hepatic uptake. There is visualized activity within the intra and extrahepatic biliary tree at 10 minutes, and within the gallbladder at 15 minutes. There is normal biliary to bowel transit, with small bowel visualized by 30 minutes. IMPRESSION: Normal nuclear hepatobiliary scan. There is no scintigraphic evidence of cholecystitis. ACT 112: Negative or not required by law. Exam(s): CT ABDOMEN + PELVIS With Contrast IV Amt: OPTIRAY 320 92ML EXAM: CT Abdomen and Pelvis With Intravenous Contrast CLINICAL HISTORY: Reason for exam: epiastric pain with diffuse abdominal pain. TECHNIQUE: Axial computed tomography images of the abdomen and pelvis with intravenous contrast. CTDI is 27.65 mGy and DLP is 1445.61 mGy-cm. Automated exposure control was utilized for the study. A dose lowering technique was utilized adhering to the principles of ALARA. CONTRAST: Patient received OPTIRAY 320 92ML of IV contrast COMPARISON: No relevant prior studies available. FINDINGS: Lung bases: Unremarkable. No mass. No consolidation. ABDOMEN: Liver: Unremarkable. No mass. Gallbladder and bile ducts: Unremarkable. No calcified stones. No ductal dilation. Pancreas: Unremarkable. No mass. No ductal dilation. Spleen: Unremarkable. No splenomegaly. Adrenals: Unremarkable. No mass. Kidneys and ureters: Multiple bilateral renal cysts. No hydronephrosis. Stomach and bowel: Unremarkable. No obstruction. No mucosal thickening. PELVIS: Appendix: No findings to suggest acute appendicitis. Bladder: Unremarkable. No mass. Reproductive: Vasectomy clips. ABDOMEN and PELVIS: Intraperitoneal space: Unremarkable. No free air. No significant fluid collection. Bones/joints: No acute fracture. No dislocation. Soft tissues: Unremarkable. Vasculature: Unremarkable. No abdominal aortic aneurysm. Lymph nodes: Unremarkable. No enlarged lymph nodes. IMPRESSION: No acute findings in the abdomen or pelvis. Electronically signed by: Papi Galindo MD 10/01/23 21:26 PM PG Care Time/CCT Total # of Minutes Spent Total Time Spent with Patient: Total time spent is greater than 50% in coordination of care (as documented) at patient's floor/unit and/or counseling patient: Coding Level of Care Code 28088 INT INP/OBS CARE 2/55MIN Diagnoses Abdominal pain R10.9 Abdominal location: unspecified location Elevated bilirubin R17 (1) Abdominal pain Abdominal location: unspecified location Qualified Code(s): R10.9 - Unspecified abdominal pain
[2023-10-02 07:35] LABS: Hematocrit (blood only) 41.7 % (42.0-52.0); Hemoglobin 14.3 g/dl (14.0-18.0); Mean Corpuscular Hemoglobin 30.1 pg (25.0-34.0); Mean Corpuscular Hgb Conc 34.3 g/dL (32.0-36.0); Mean Corpuscular Volume 87.8 fL (80.0-100.0); Mean Platelet Volume 10.4 fL (9.4-12.4); Platelet Count 107 K/uL (130-400); RDW Coefficient of Variation 13.5 % (11.5-14.5); RDW Standard Deviation 43.5 fL (36.4-46.3); Red Blood Count 4.75 M/uL (4.70-6.10); White Blood Count 6.83 K/ul (4.8-10.8)
[2023-10-02 07:43] LABS: Albumin Globulin Ratio 1.3 (0.9-2); Albumin Level 3.9 gm/dl (3.4-5.0); BUN Creatinine Ratio 19.8 (10-20); Bilirubin,Total 1.3 mg/dl (0.2-1.0); Calcium 8.7 mg/dl (8.6-10.3); Creatinine Clr Calc Pharmacy 69.2 ml/min; Est GFR (African American) 88.6 ml/min; Est GFR (Non-African American) 76.5 ml/min; Potassium 4.2 mmol/L (3.5-5.1); Total Protein 6.9 gm/dl (6.0-8.3)
[2023-10-02] MEDS: PANTOprazole 40 MG in SYRINGE 0 ML IV SCH (08:34)
--- NOTE | 2023-10-02 11:07 | Nuclear Medicine Report ---
NUCLEAR HEPATOBILIARY SCAN CLINICAL HISTORY: Epigastric abdominal pain. COMPARISON STUDY: Abdominal CT dated 10/01/2023. TECHNIQUE: Dynamic images of the liver and anterior abdomen were obtained every 5 minutes for a total of 60 minutes following the IV administration of 5.5 mCi of technetium 99m Mebrofenin. FINDINGS: The hepatobiliary scan shows prompt and homogeneous hepatic uptake. There is visualized act ivity within the intra and extrahepatic biliary tree at 10 minutes, and within the gallbladder at 15 minutes. There is normal biliary to bowel transit, with small bowel visualized by 30 minutes. IMPRESSION: Normal nuclear hepatobiliary scan. There is no scintigraphic evidence of cholecystitis. ACT 112: Negative or not required by law. Electronically signed by: García Paz M.D. 10/02/2023 11:05 AM
--- NOTE | 2023-10-02 11:21 | Hospitalist Progress Note ---
Date of Service October 02, 2023 Assessment & Plan (1) Abdominal pain: Plan: Patient with documented history of cholelithiasis and previously elevated transaminases/bilirubin. - General surgery consulted - Rec HIDA scan - no acute findings - Discussed with surgery CONSTANTINO, they independently reviewed images and cholelithasis without signs of acute chica - Outpatient follow up with Dr. Dai for elective chica - CMP in AM - consider RUQ US if symptoms worsening Continue GI ppx with pantoprazole 40 mg BID Advanced diet as tolerated AM CMP and CBC (2) CAD S/P percutaneous coronary angioplasty: Plan: Continue ASA (3) Hypertension: Plan: Continue lisinopril (4) Hypothyroidism: Plan: Continue Synthroid TSH WNL 08/2023 (5) Transaminitis: Plan: hold statin for now Plan Dispo: continued inpatient stay, hopeful d/c in AM pending CMP and pt ability to tolerate diet DVT proh: SCDs, encourage ambulation Admission and Anticipated Discharge Date Admission Date: October 01, 2023 Subjective Patient seen ambulating in room Still has lower abdominal pain - improved from when he came in, but still present. Nothing that makes it better or worse. has been dealing with chronic back pain and may have surgery for this soon. NPO currently, but states he hasnt eaten in two days because of nausea with the pain. No urinary symptoms last BM yesterday Review of Systems Review of Systems: All systems reviewed & are unremarkable except as noted in Subjective Physical Exam Physical Exam: General: NAD, VS as above Resp: normal respiratory effort, lungs clear to auscultation CV: RRR, no murmur, Abd: normal bowel sounds, non tender, no hepatosplenomegaly Extremities: Moves all extremities, no edema Neuro: A&O x3, Skin: intact, no lesions noted Results & Data Results & Data Vital Signs (Past 12 Hours) Vital Signs Temp Pulse Resp BP Pulse Ox O2 Del Method 10/02/23 07:28 36.4 C L 72 18 153/84 H 96 Room Air 10/02/23 00:02 36.7 C 69 18 159/89 H 95 Room Air Laboratory Results CBC and chemistry reviewed PG Care Time/CCT Total # of Minutes Spent Total Time Spent with Patient: Total time spent is greater than 50% in coordination of care (as documented) at patient's floor/unit and/or counseling patient: Coding Level of Care Code 73954 SUB INP/OBS CARE 3/50MIN Diagnoses Abdominal pain R10.9 Abdominal location: unspecified location CAD S/P percutaneous coronary angioplasty I25.10; Z98.61 Hypertension I10 Hypothyroidism E03.9 Transaminitis R74.01 (1) Abdominal pain Abdominal location: unspecified location Qualified Code(s): R10.9 - Unspecified abdominal pain
[2023-10-02] MEDS: ASPIRIN 81 MG ECTAB PO SCH (16:01)
[2023-10-02] MEDS: FLUoxetine HCL 20 MG CAP PO SCH (20:06)
[2023-10-02] MEDS ORDERED: EZETIMIBE 10 MG TAB PO SCH (21:00)
[2023-10-02] MEDS ORDERED: ROSUVASTATIN CALCIUM 20 MG TAB PO SCH (21:00)
[2023-10-03] MEDS: LEVOTHYROXINE SODIUM 75 MCG TABLET PO SCH (05:38)
--- NOTE | 2023-10-03 05:58 | Electrocardiogram Report ---
Test Reason : Blood Pressure : / mmHG Vent. Rate : 071 BPM Atrial Rate : 071 BPM P-R Int : 112 ms QRS Dur : 096 ms QT Int : 408 ms P-R-T Axes : 029 050 077 degrees QTc Int : 443 ms Normal sinus rhythm Normal ECG When compared with ECG of 27-MAR-2022 21:08, No significant change was found Confirmed by vAery Kang ([id number]) on 10/03/2023 5:58:38 AM Referred By: REFERRED SELF Confirmed By:Yung Kang
[2023-10-03 07:10] LABS: Hematocrit (blood only) 42.4 % (42.0-52.0); Hemoglobin 14.6 g/dl (14.0-18.0); Mean Corpuscular Hgb Conc 34.4 g/dL (32.0-36.0); Mean Corpuscular Volume 87.2 fL (80.0-100.0); Mean Platelet Volume 10.2 fL (9.4-12.4); Platelet Count 128 K/uL (130-400); RDW Coefficient of Variation 13.9 % (11.5-14.5); RDW Standard Deviation 44.3 fL (36.4-46.3); Red Blood Count 4.86 M/uL (4.70-6.10); White Blood Count 6.25 K/ul (4.8-10.8)
[2023-10-03 07:32] LABS: Albumin Globulin Ratio 1.2 (0.9-2); Albumin Level 3.6 gm/dl (3.4-5.0); BUN Creatinine Ratio 17.6 (10-20); Bilirubin,Total 1.1 mg/dl (0.2-1.0); Calcium 8.6 mg/dl (8.6-10.3); Creatinine Clr Calc Pharmacy 55.8 ml/min; Est GFR (African American) 68.4 ml/min; Globulin 2.9 gm/dl (2.5-4.0); Potassium 4.1 mmol/L (3.5-5.1); Total Protein 6.5 gm/dl (6.0-8.3)
[2023-10-03] MEDS: lisinopril 2.5 MG TAB PO SCH (09:06)
--- NOTE | 2023-10-03 11:41 | Discharge Summary ---
Date of Service October 03, 2023 Admission HPI Per Admitting Provider 78 y/o male with a PMHx of impaired fasting glucose, hypothyroidism, HTN, HLD, and dyspepsia presents with abdominal pain. Patient with epigastric pain that started yesterday evening with associated nausea and dry heaving. Pain has traveled around some. Current midline below the level of the umbilicus. Pain described as 3-4/10, dull constant. No alleviating/exacerbating symptoms. No fevers or chills. No CP or SOB. No change in bowel habits. No dysuria or hematuria. No hematochezia. Did have a bowel movement yesterday. Nausea improved with zofran. Patient is feeling hungry. No smoking history. Drinks about 1 alcoholic beverage weekly. Denies any NSAID use or reflux symptoms. Of note patient is on Celebrex and ASA daily. Does also have TUMs on his med list, so there may be a component of dyspepsia. Principal Diagnosis Cholelithiasis, Discharge Exam The patient is awake, alert and oriented 3, well developed and well nourished, normocephalic and atraumatic, lying in bed and in no acute distress. HEENT--PERRL, EOMI, mucous membranes and oropharynx mildly dry Neck--supple. No JVD. No bruits. Thyroid normal, trachea midline, no adenopathy. Heart--normal S1 and S2. No murmurs, rubs or gallops. Lungs--clear bilaterally, no respiratory distress, no accessory muscle use. Abdomen--normal bowel sounds and soft. Extremities--no cyanosis or clubbing. No edema. Dermatologic--normal skin turgor, normal color, no abnormal lymph nodes, no rash. Neurologic--cranial nerves II through XII grossly intact. Rheumatologic--normal range of motion. Psychiatric--normal affect. Discharge Data Allergies Allergy/AdvReac Type Severity Reaction Status Date / Time No Known Allergies Allergy Verified 10/01/23 23:03 Consultations 10/01/23 21:40 ED Decision to Admit Stat 10/01/23 22:39 Consult General Surgery Routine Ordered Studies 10/01/23 17:20 CT abd pelvis IV con only Stat Hospital Course (1) Abdominal pain: Patient with documented history of cholelithiasis and previously elevated transaminases/bilirubin. Abdominal pain is most likely due to gall stone which has passed, pain has resolved There was mild elevation in liver enzymes which have been trending down HIDA scan was done which was normal did not show any evidence of cholecystitis Surgery consulted no surgical plans for now and advised outpatient follow-up (2) CAD S/P percutaneous coronary angioplasty: Continue ASA (3) Hypertension: Continue lisinopril (4) Hypothyroidism: Continue Synthroid TSH WNL 08/2023 (5) Transaminitis: hold statin for now Liver enzymes trending down Plan Discharge home Total Time Total Time Spent Total Time Spent (In Minutes): 35 Discharge Plan Discharge Items Patient Disposition: Home - Self-Care Reason For Visit: ABDOMINAL PAIN Discharge Diagnosis: abdominal pain, cholelithiasis Activity: Resume your previous activity Non-emergency contact: Primary Care Provider and Surgeon Call non-emergency contact if: you have any medication questions Follow-up/Referrals: Roque Dai DO, DEBBIE [Physician] - (you may call to schedule follow up in the surgical office to discuss the possibility of elective outpatient removal of your gallbladder. schedule within 1-2 weeks PATIENT'S WILL CALL [facility] TO SCHEDULE OUTPATIENT FOLLOW IN 1-2 WEEKS.) Estelle Gee MD [Primary Care Provider] - 10/09/23 10:30 am Diet: Regular Addtl Attending Provider Instructions: please follow up with surgery as soon as possible Pending Studies at Discharge: No Stand-Alone Forms: [facility] [employer], Smoking Cessation Medications and DC Order Prescriptions: Continued celecoxib [Celebrex] 200 mg capsule 200 mg PO DAILY Qty: 30 2RF ezetimibe 10 mg tablet 10 mg PO HS Qty: 90 3RF rosuvastatin 40 mg tablet 40 mg PO HS Qty: 90 3RF fluoxetine 20 mg capsule 20 mg PO HS Qty: 90 3RF levothyroxine 75 mcg tablet 75 mcg PO QAM Qty: 90 3RF lisinopril 2.5 mg tablet 2.5 mg PO QAM Qty: 90 3RF Hold Instructions: low bp. mto hold till seen by dr montoya metformin 500 mg tablet extended release 24 hr 250 mg PO DAILY aspirin [Trung Low Dose Aspirin] 81 mg Tablet,Delayed Release (Dr/Ec) 81 mg PO QAM calcium carbonate [Tums] 200 mg calcium (500 mg) tablet,chewable 200 mg PO TID PRN (Reason: dyspepsia) Qty: 30 0RF clotrimazole-betamethasone 1-0.05 % cream 1 applic topical BID PRN (Reason: flare ups) Rx Instructions: To skin patch on back Discharge Orders: Discharge Order (Routine); Ordered 10/03/23 Ordered By: Ildefonso Guerrero Admission Data Admit Date/Time: 10/01/23 22:36 Attending Provider: Ildefonso Guerrero Admit Provider: Leslee Rasmussen Primary Care Provider: Estelle Gee Other Providers: Roque Dai; Mekhi Vail Other Interventions: Discharge Summary Assessment (RN) Last Done: 10/03/23 09:21 Coding Level of Care Code 09129 INP/OBS DISCH >30 MIN Diagnoses Abdominal pain R10.9 Abdominal location: unspecified location CAD S/P percutaneous coronary angioplasty I25.10; Z98.61 Hypertension I10 Hypothyroidism E03.9 Transaminitis R74.01 Time Spent (min) 35
--- NOTE | 2023-10-03 20:18 | Billing Data ---
Date of Service October 03, 2023 Coding Level of Care Code 22747 INT INP/OBS CARE
== END 2023-10-03 10:05 | disposition home or self-care (01) ==
LOC: ED 17:12 → 3E 17:12 → SUATTDRO 22:36 → 3E 10-02 01:16